=== PATIENT | male | born 1925 | race Caucasian/White ===

== ENCOUNTER 2016-10-22 04:37 | Inpatient (IN) ==
--- NOTE | 2016-10-22 05:33 | Emergency Department Note ---
Disposition Clinical Impression: Dislodged gastrostomy tube Disposition: Admitted As Inpatient Condition: Good Time of Disposition: 05:48 General Adult HPI - General Stated complaint: Pulled out PEG tube Source: patient Limitations: other Nursing Notes Reviewed: Yes Vital Signs Reviewed: Yes - History of Present Illness HPI Narrative: 89-year-old male with a history of esophageal stenosis presents to the emergency department for evaluation after pulling his PEG tube out. Patient is currently at an extended care facility where some point tonight he dislodged his PEG tube and removed it. PEG tube was placed on 10/14/[address] Harden for what sounds like esophageal strictures. On arrival the stoma is covered with a gauze and there is a small amount of blood oozing from the area. Patient denies any abdominal pain. He is currently sleeping in bed in no acute distress. Patient is unsure of how the PEG tube was removed and is not entirely clear when the PEG tube was actually placed. On exam, the abdomen is soft with a small incision noted in the left upper quadrant is covered by a clean dry dressing. No other focal findings noted on exam. We did discuss the case with Dr. Jeronimo who advised us not to attempt to place a Campbell catheter to maintain the stoma, but rather admit the patient to the surgical service and keep him nothing by mouth until a PEG tube can be placed. Baseline labs ordered. Pt Subjective Complaint: PEG tube removed Onset (ago): unknown Location: abdomen Radiation: non-radiation Pain Scale: 3 Improves with: nothing Worsens with: nothing Associated symptoms: Reports: denies other symptoms Treatments Prior to Arrival: none - Related Data Home Medications Medication Instructions Recorded Confirmed Cyclosporine [Restasis] 1 drop BOTH EYES HS 08/22/15 10/10/16 Darifenacin Hydrobromide [Enablex] 7.5 mg PO DAILY 08/22/15 10/10/16 [place]-3 Acid Ethyl Esters [Lovaza] 1 gm PO Q12H 08/22/15 10/10/16 Tamsulosin [Flomax] 0.4 mg PO DAILY 08/22/15 10/10/16 Benzonatate [Tessalon] 100 mg PO TID PRN 07/21/16 10/10/16 Ferrous Sulfate 325 mg PO DAILY 07/21/16 10/10/16 Montelukast [Singulair] 10 mg PO DAILY 07/21/16 10/10/16 Multivitamin [Multi-Day Vitamins] 1 tab PO DAILY 07/21/16 10/10/16 Nitroglycerin [Nitrostat] 0.4 mg SL Q5M PRN 07/21/16 10/10/16 Ascorbate Calcium [Vitamin C] 500 mg PO DAILY 08/18/16 10/10/16 Ca/D3/Mag#11/Zinc/Animal Caretaker/[place]/Bor 1 tab PO DAILY 08/18/16 10/10/16 [Caltrate 600+D Plus Tablet] Budesonide/Formoterol 80/4.5 2 puff IH BID 09/10/16 10/10/16 [Symbicort 80/4.5] Furosemide [Lasix] 40 mg PO BID 09/10/16 10/10/16 Selenium 300 mcg PO DAILY 09/10/16 10/10/16 Fluticasone/Vilanterol [Breo 1 each IH DAILY 09/19/16 10/10/16 Ellipta 100-25 Mcg INH] Isosorbide DInitrate [Isosorbide 30 mg PO DAILY 09/19/16 10/10/16 Dinitrate] Lactose-Reduced Food [Ensure Plus] 1 bottle PO 199909/19/16 10/10/16 Potassium Chloride 20 meq PO TID 09/19/16 10/10/16 Magnesium Oxide [Mag-Ox] 400 mg PO DAILY 10/10/16 10/10/16 RisperiDONE [Risperidone Odt] 0.5 mg PO HS 10/10/16 10/10/16 Saline Nasal [place] [[place] Nasal 1 - 2 spray NS Q4H PRN 10/10/16 10/10/16 [place]] Previous Rx's Medication Instructions Recorded Aspirin 81 mg PO DAILY #30 tab.chew 07/25/16 Omeprazole [PriLOSEC] 40 mg PO BID #60 07/25/16 Sucralfate [Carafate] 1 gm PO QIDAC #120 tablet 07/25/16 Diltiazem CD (24hr) [Cardizem CD] 240 mg PO DAILY #30 cap.er.24h 07/30/16 AcetaZOLAMIDE [Diamox] 250 mg PO DAILY #30 tablet 08/23/16 Docusate [Colace] 100 mg PO BID capsule 09/15/16 Levothyroxine [Synthroid] 50 mcg PO 0630 tablet 09/15/16 Metoprolol [Lopressor] 50 mg PO BID #60 tablet 09/22/16 Polyethylene Glycol 3350 [MiraLAX] 17 gm PO DAILY PRN #14 powd.pack 09/22/16 Sennosides/Docusate Sodium [Senna 2 each PO BID #60 tablet 09/22/16 Plus] GuaiFENesin ER [Mucinex] 600 mg PO BID PRN #20 tbbp.12hr 10/09/16 Ipratropium/Albuterol Neb [Duoneb] 3 ml IH [id number] PRN #10 inhsol 10/09/16 Diltiazem HCl [Cardizem] 60 mg GTUBE Q6HR #120 tablet 10/17/16 OxyCODONE Immed Rel [Roxicodone 5 5 mg PO Q6HR PRN #30 tablet MDD 4 10/17/16 MG] tabs Allergies Allergy/AdvReac Type Severity Reaction Status Date / Time Anesthetics - Laura Type- Allergy Rash Verified 10/10/16 07:55 Parabens [Anesthetics - Laura Type] morphine AdvReac Itching Verified 10/10/16 07:55 Constitutional: Denies: fever, chills Cardiovascular: Denies: chest pain, palpitations Respiratory: Denies: cough, dyspnea Gastrointestinal: Reports: abdominal pain. Denies: nausea, vomiting Genitourinary: Denies: urgency Musculoskeletal: Denies: back pain Integumentary: Denies: rash Neurological: Denies: headache Past Medical History - Past Medical History Medical history: Reports: arthritis, asthma, atrial fibrillation, cancer, cardiomyopathy, CHF, COPD, coronary artery disease, DVT, GERD, GI bleed, hyperlipidemia, hypertension, malignancy, myocardial infarction, osteoporosis, thyroid disease, venous stasis, other Surgical history: Reports: angioplasty/stent, cancer surgery, cholecystectomy, coronary bypass (CABG), pacemaker/AICD, thyroidectomy, other Psychiatric history: Reports: no psych history - Social History Smoking Status: Former smoker Smokeless Tobacco Status: No Alcohol use: Reports: none Drug use: Reports: none Physical Exam - General General appearance: alert, in no apparent distress - Head Head exam: atraumatic, normocephalic, normal inspection - Chest Chest inspection: Present: normal inspection, symmetric chest wall rise - Respiratory Respiratory exam: Present: normal lung sounds bilaterally - Cardiovascular Cardiovascular exam: Present: regular rate, normal rhythm, normal heart sounds - Abdominal Exam Abdominal exam: Present: soft, tenderness. Absent: distention, guarding, rebound, rigidity Abdominal tenderness: Present: LUQ, mild - Neurological Exam Neurological exam: Present: alert - Skin Skin exam: Present: warm, dry, intact, normal color Course Vital Signs Temperature 98.6 F 10/22/16 04:44 Pulse Rate 87 10/22/16 04:44 Respiratory Rate 18 10/22/16 04:44 Blood Pressure 119/54 10/22/16 04:44 O2 Sat by Pulse Oximetry 99 10/22/16 04:44 Temperature 98.6 F 10/22/16 04:44 Pulse Rate 87 10/22/16 04:44 Respiratory Rate 18 10/22/16 04:44 Blood Pressure 119/54 10/22/16 04:44 O2 Sat by Pulse Oximetry 99 10/22/16 04:44 Oxygen Delivery Oxygen Delivery Nasal Cannula Medical Decision Making - Medical Records Medical records reviewed: Yes I reviewed the patient's medical records. - Lab Data Lab results reviewed: Yes I reviewed the patient's lab results. - EKG Data EKG #1 EKG attestation: Yes I reviewed and interpreted this EKG. Rate: normal Rhythm: A.Fib Interpretation: no acute changes Attestation Statement - Attestation Attestation: I, Donny Forbes MD, personally performed a history and physical exam of the patient and discussed their management with the resident. I reviewed the resident's note and agree with the documented findings, medical decision making , and plan of care. 89-year-old male sent to the emergency department from a local prison after he pulled out his PEG tube. The PEG tube was just placed 1 week ago. Examination patient is a well-developed well-nourished elderly male in no acute distress. He is alert and cooperative. There is no cyanosis or diaphoresis. Breath sounds are equal bilaterally. Heart irregularly irregular. Abdomen soft with normal bowel sounds. Mild upper abdominal tenderness around the incision site of the PEG tube. Clot present in the incision site with no active bleeding noted. The surgeon aeronautical engineering teacher, Dr. Jeronimo, was consulted and will admit the patient.
[2016-10-22 06:52] LABS: Basophils % 0.2 %; Eosinophils # 0.3 K/mcL (0.0-0.6); Eosinophils % 2.8 %; Hematocrit 31.9 % (37.5-50.1); Hemoglobin 9.6 g/dL (12.9-16.9); Immature Granulocytes % 0.6 % (0-4); Lymphocytes # 0.7 K/mcL (0.6-4.6); Lymphocytes % 7.1 %; Mean Corpuscular HGB Conc 30.1 g/dL (31.6-35.5); Mean Corpuscular Hemoglobin 29.9 pg (28.0-33.3); Mean Corpuscular Volume 99.4 fL (83.0-100.0); Mean Platelet Volume 9.2 fL (9.4-12.4); Monocytes # 0.9 K/mcL (0.0-1.3); Monocytes % 9.8 %; Neutrophils # 7.5 K/mcL (1.6-8.9); Platelet Count 220 K/mcL (140-400); Red Blood Count 3.21 M/mcL (4.19-5.50); Red Cell Distribution Width 14.8 % (11.5-14.5); Segmented Neutrophils % 79.5 %
[2016-10-22 06:57] LABS: INR 1.1; Prothrombin Time 12.2 Seconds (9.4-12.1)
[2016-10-22 07:03] LABS: BUN/Creatinine Ratio 34 (6-26); Blood Urea Nitrogen 28 mg/dL (8-26); Calcium 10.2 mg/dL (8.6-10.8); Chloride 94 mEq/L (98-109); Glucose 130 mg/dL (70-99); Osmolality,Calculated 299 (280-300); Sodium 141 mEq/L (136-145); eGFR For African Americans > 60 (> 60); eGFR For Non-African Americans > 60 (> 60)
[2016-10-22 07:19] LABS: Carbon Dioxide 46 mEq/L (19-29)
[2016-10-22] MEDS ORDERED: *HR* Midazolam HCl 5 MG/5 ML VIAL IVP ONE (11:16)
[2016-10-22] MEDS ORDERED: *HR* FentaNYL (PF) 100 MCG/2 ML VIAL ONE (11:17)
[2016-10-22] MEDS ORDERED: Tetracaine/Benzocaine/Butamben 200MG/SPRAY (100SPY/BOT) MM ONE (11:29)
[2016-10-22] MEDS ORDERED: *HR* FentaNYL (PF) 100 MCG/2 ML VIAL IVP PRN (11:29)
[2016-10-22] MEDS ORDERED: *HR* Midazolam HCl 5 MG/5 ML VIAL IVP PRN (11:29)
[2016-10-22] MEDS ORDERED: Simethicone 40 MG/0.6 ML MLS IR ONE (11:29)
--- NOTE | 2016-10-22 11:29 | Pre-Sedation Evaluation ---
Pre-sedation evaluation - Pre-sedation checklist Date of procedure: 10/22/16 Procedure: PEG replacement Recent Vitals: Last Vital Signs Temp 97.4 F L 10/22/16 10:52 Pulse 90 10/22/16 10:52 Resp 18 10/22/16 10:52 BP 127/64 10/22/16 10:52 Pulse Ox 95 10/22/16 10:52 H&P (including ROS) documented in medical record: Yes Previous reaction to sedatives/anesthetics: Yes; explain in comment Dietary Status: NPO after Midnight Dentition: No loose teeth or bridges Possible difficult airway: No ASA Classification *see protocol: CLASS IV-Severe systemic disease/constant threat to pt's life Plan of Care: Pt appropriate candidate for procedure/moderate/conscious sedation , Risks/benefits of procedure/sedation discussed w/ patient/family
[2016-10-22] MEDS ORDERED: ceFAZolin 2,000 MG in D5% in Water 100 ML IVPB ONE (11:40)
[2016-10-22] MEDS: 0.9 % Sodium Chloride 1,000 ML IVC SCH (12:00)
--- NOTE | 2016-10-22 12:11 | Electrocardiograph Report ---
[facility] Test Date: 2016-10-22 Pat Name: Chay Torres Department: 105 Room: 3A43 Gender: M Library Services Dean: [facility] : [id number] Requested By: Cory Bartlett Order Number: [id number] Reading MD: Sukhdeep Danielle MD Measurements Intervals [place] Rate: 85 P: [place]: 0 QRS: 19 QRSD: 101 T: -8 QT: 378 QTc: 420 Interpretive Statements ATRIAL FIBRILLATION NONSPECIFIC T-WAVE ABNORMALITY Electronically Signed On 10-22-16 12:10:34 EST by Sukhdeep Danielle MD
--- NOTE | 2016-10-22 12:22 | General Surg History&Physical ---
<Michelle Mckeon - Last Filed: 10/22/16 12:30> Date of Encounter: 10/22/16 Time of Encounter: 12:17 Assessment and Plan (1) Dislodged gastrostomy tube Current Visit: Yes Status: Acute The assessment and plan as outlined above was discussed with the patient and/or family members who expressed understanding and agreement. All questions were answered. new PEG tube placement today History of Present Illness Chief complaint: PEG tube (re)placement HPI: Mr. Torres is a 89 year old male resident of an [facility] who pulled out his PEG tube - placed 10/14/2016 - last night. His daughter is in the room with him and states that he said he did not want the tube replaced when he was in the ER. He currently says he does want the tube replaced, but has AMS. His POA, his Sallie, was contacted and she gave said to replace the PEG tube. Surgical consent was signed and the patient will be going to the OR today for new PEG tube placement. Past Med Surg Social Fam HX - Past Medical History Medical history: arthritis, asthma, atrial fibrillation, cancer, cardiomyopathy , CHF, COPD, coronary artery disease, DVT, GERD, GI bleed, hyperlipidemia, hypertension, malignancy, myocardial infarction, osteoporosis, thyroid disease, venous stasis, other Psychiatric history: no psych history - Past Surgical History Surgical History: angioplasty/stent, cancer surgery, cholecystectomy, coronary bypass (CABG), pacemaker/AICD, thyroidectomy, other - Social History Smoking Status: Former smoker Smokeless Tobacco Status: No Alcohol use: none Drug use: none - Family History Father Adopted: No Family Member Ethnicity: Non- Living Status: Hx Family Cardiac Disorders: Yes (HTN) Hx Family Respiratory Disorders: No Hx Family Cancer: No Hx Family GI Disorders: No Hx Family Endocrine Disorder: No Hx Family Neuromuscular Disorders: No Hx Family Neurologic Disorders: No Hx Family HEENT Disorders: No Hx Family Autoimmune Disorders: No Medications and Allergies Cyclosporine [Restasis] 1 drop BOTH EYES HS 08/22/15 [History] Darifenacin Hydrobromide [Enablex] 7.5 mg PO DAILY 08/22/15 [History] [place]-3 Acid Ethyl Esters [Lovaza] 1 gm PO Q12H 08/22/15 [History] Tamsulosin [Flomax] 0.4 mg PO DAILY 08/22/15 [History] Benzonatate [Tessalon] 100 mg PO TID PRN 07/21/16 [History] Ferrous Sulfate 325 mg PO DAILY 07/21/16 [History] Montelukast [Singulair] 10 mg PO DAILY 07/21/16 [History] Multivitamin [Multi-Day Vitamins] 1 tab PO DAILY 07/21/16 [History] Nitroglycerin [Nitrostat] 0.4 mg SL Q5M PRN 07/21/16 [History] Aspirin 81 mg PO DAILY #30 tab.chew 07/25/16 [Rx] Omeprazole [PriLOSEC] 40 mg PO BID #60 07/25/16 [Rx] Sucralfate [Carafate] 1 gm PO QIDAC #120 tablet 07/25/16 [Rx] Ascorbate Calcium [Vitamin C] 500 mg PO DAILY 08/18/16 [History] Ca/D3/Mag#11/Zinc/Coupon And Bond Collection Clerk/[place]/Bor [Caltrate 600+D Plus Tablet] 1 tab PO DAILY 08/18 [History] AcetaZOLAMIDE [Diamox] 250 mg PO DAILY #30 tablet 08/23/16 [Rx] Budesonide/Formoterol 80/4.5 [Symbicort 80/4.5] 2 puff IH BID 09/10/16 [History ] Furosemide [Lasix] 40 mg PO BID 09/10/16 [History] Selenium 300 mcg PO DAILY 09/10/16 [History] Docusate [Colace] 100 mg PO BID capsule 09/15/16 [Rx] Levothyroxine [Synthroid] 50 mcg PO 0630 tablet 09/15/16 [Rx] Fluticasone/Vilanterol [Breo Ellipta 100-25 Mcg INH] 1 each IH DAILY 09/19/16 [ History] Isosorbide DInitrate [Isosorbide Dinitrate] 30 mg PO DAILY 09/19/16 [History] Lactose-Reduced Food [Ensure Plus] 1 bottle PO 199909/19/16 [History] Potassium Chloride 20 meq PO TID 09/19/16 [History] Metoprolol [Lopressor] 50 mg PO BID #60 tablet 09/22/16 [Rx] Polyethylene Glycol 3350 [MiraLAX] 17 gm PO DAILY PRN #14 powd.pack 09/22/16 [Rx ] Sennosides/Docusate Sodium [Senna Plus] 2 each PO BID #60 tablet 09/22/16 [Rx] GuaiFENesin ER [Mucinex] 600 mg PO BID PRN #20 tbbp.12hr 10/09/16 [Rx] Ipratropium/Albuterol Neb [Duoneb] 3 ml IH [id number] PRN #10 inhsol 10/09/16 [Rx] Magnesium Oxide [Mag-Ox] 400 mg PO DAILY 10/10/16 [History] RisperiDONE [Risperidone Odt] 0.5 mg PO HS 10/10/16 [History] Saline Nasal [place] [[place] Nasal [place]] 1 - 2 spray NS Q4H PRN 10/10/16 [History] Diltiazem HCl [Cardizem] 60 mg GTUBE Q6HR #120 tablet 10/17/16 [Rx] OxyCODONE Immed Rel [Roxicodone 5 MG] 5 mg PO Q6HR PRN #30 tablet MDD 4 tabs [Rx] Allergies Anesthetics - Laura Type- Parabens [Anesthetics - Laura Type] Allergy (Verified 10/10/16 07:55) Rash morphine Adverse Reaction (Verified 10/10/16 07:55) Itching Review of Systems ROS unobtainable: due to mental status All systems PM: A 10-system review of systems was performed and is negative for pertinent findings except as documented above in the HPI. General Surgery Exam Initial Vital Signs Temp Pulse Resp BP Pulse Ox 98.6 F 87 18 119/54 99 10/22/16 04:44 10/22/16 04:44 10/22/16 04:44 10/22/16 04:44 10/22/16 04:44 - General physical appearance well developed, well nourished, no distress - Eyes normal ocular movement - ENT normal mucosa, atraumatic, normocephalic - Neck trachea midline - Respiratory normal respiratory effort, clear to auscultation - Cardiovascular Cardiovascular exam: Present: RRR - Abdomen Abdomen general surgery: Present: bowel sounds present, soft, non tender, wound (PEG hole covered) - Neurologic Present: CN 2-12 grossly intact, confused, disoriented - Psychiatric Psychiatric general surgery: Present: other (possibly A&Ox1 - he is talking nonsensical) Results - Labs 10/22/16 06:45 10/22/16 06:45 Abnormal lab results RBC 3.21 M/mcL (4.19-5.50) L 10/22/16 06:45 Hgb 9.6 g/dL (12.9-16.9) L 10/22/16 06:45 Hct 31.9 % (37.5-50.1) L 10/22/16 06:45 MCHC 30.1 g/dL (31.6-35.5) L 10/22/16 06:45 RDW 14.8 % (11.5-14.5) H 10/22/16 06:45 MPV 9.2 fL (9.4-12.4) L 10/22/16 06:45 PT 12.2 Seconds (9.4-12.1) H 10/22/16 06:45 Potassium 5.0 mEq/L (3.5-4.5) H D 10/22/16 06:45 Chloride 94 mEq/L (98-109) L 10/22/16 06:45 Carbon Dioxide 46 mEq/L (19-29) H* 10/22/16 06:45 BUN 28 mg/dL (8-26) H D 10/22/16 06:45 BUN/Creatinine Ratio 34 (6-26) H 10/22/16 06:45 Glucose 130 mg/dL (70-99) H 10/22/16 06:45 POC Glucose 117 (58-89) H 10/22/16 10:54 Diabetes panel 10/22/16 Range/Units 06:45 Sodium 141 (136-145) mEq/L Potassium 5.0 H D (3.5-4.5) mEq/L Chloride 94 L (98-109) mEq/L Carbon Dioxide 46 H* (19-29) mEq/L BUN 28 H D (8-26) mg/dL Creatinine 0.82 (0.72-1.25) mg/dL Glucose 130 H (70-99) mg/dL Calcium 10.2 (8.6-10.8) mg/dL Calcium panel 10/22/16 Range/Units 06:45 Calcium 10.2 (8.6-10.8) mg/dL Pituitary panel 10/22/16 Range/Units 06:45 Sodium 141 (136-145) mEq/L Potassium 5.0 H D (3.5-4.5) mEq/L Chloride 94 L (98-109) mEq/L Carbon Dioxide 46 H* (19-29) mEq/L BUN 28 H D (8-26) mg/dL Creatinine 0.82 (0.72-1.25) mg/dL Glucose 130 H (70-99) mg/dL Calcium 10.2 (8.6-10.8) mg/dL Adrenal panel 10/22/16 Range/Units 06:45 Sodium 141 (136-145) mEq/L Potassium 5.0 H D (3.5-4.5) mEq/L Chloride 94 L (98-109) mEq/L Carbon Dioxide 46 H* (19-29) mEq/L BUN 28 H D (8-26) mg/dL Creatinine 0.82 (0.72-1.25) mg/dL Glucose 130 H (70-99) mg/dL Calcium 10.2 (8.6-10.8) mg/dL All other labs normal. <Perfecto Jeronimo T - Last Filed: 10/23/16 07:47> History of Present Illness HPI: Mr. Torres is a 89 year old male Review of Systems All systems PM: A 10-system review of systems was performed and is negative for pertinent findings except as documented above in the HPI. General Surgery Exam Initial Vital Signs Temp Pulse Resp BP Pulse Ox 98.6 F 87 18 119/54 99 10/22/16 04:44 10/22/16 04:44 10/22/16 04:44 10/22/16 04:44 10/22/16 04:44 Results - Labs 10/23/16 04:11 10/23/16 04:11 Abnormal lab results RBC 3.23 M/mcL (4.19-5.50) L 10/23/16 04:11 Hgb 9.6 g/dL (12.9-16.9) L 10/23/16 04:11 Hct 32.7 % (37.5-50.1) L 10/23/16 04:11 MCV 101.2 fL (83.0-100.0) H 10/23/16 04:11 MCHC 29.4 g/dL (31.6-35.5) L 10/23/16 04:11 RDW 15.0 % (11.5-14.5) H 10/23/16 04:11 Neutrophils # 9.0 K/mcL (1.6-8.9) H 10/23/16 04:11 PT 12.2 Seconds (9.4-12.1) H 10/22/16 06:45 Potassium 5.1 mEq/L (3.5-4.5) H 10/23/16 04:11 Chloride 96 mEq/L (98-109) L 10/23/16 04:11 Carbon Dioxide 45 mEq/L (19-29) H* 10/23/16 04:11 BUN 29 mg/dL (8-26) H 10/23/16 04:11 BUN/Creatinine Ratio 38 (6-26) H 10/23/16 04:11 Glucose 103 mg/dL (70-99) H 10/23/16 04:11 POC Glucose 116 (58-89) H 10/23/16 05:22 Calculated Osmolality 304 (280-300) H 10/23/16 04:11 Diabetes panel 10/23/16 Range/Units 04:11 Sodium 144 (136-145) mEq/L Potassium 5.1 H (3.5-4.5) mEq/L Chloride 96 L (98-109) mEq/L Carbon Dioxide 45 H* (19-29) mEq/L BUN 29 H (8-26) mg/dL Creatinine 0.76 (0.72-1.25) mg/dL Glucose 103 H (70-99) mg/dL Calcium 9.7 (8.6-10.8) mg/dL Calcium panel 10/23/16 Range/Units 04:11 Calcium 9.7 (8.6-10.8) mg/dL Pituitary panel 10/23/16 Range/Units 04:11 Sodium 144 (136-145) mEq/L Potassium 5.1 H (3.5-4.5) mEq/L Chloride 96 L (98-109) mEq/L Carbon Dioxide 45 H* (19-29) mEq/L BUN 29 H (8-26) mg/dL Creatinine 0.76 (0.72-1.25) mg/dL Glucose 103 H (70-99) mg/dL Calcium 9.7 (8.6-10.8) mg/dL Adrenal panel 10/23/16 Range/Units 04:11 Sodium 144 (136-145) mEq/L Potassium 5.1 H (3.5-4.5) mEq/L Chloride 96 L (98-109) mEq/L Carbon Dioxide 45 H* (19-29) mEq/L BUN 29 H (8-26) mg/dL Creatinine 0.76 (0.72-1.25) mg/dL Glucose 103 H (70-99) mg/dL Calcium 9.7 (8.6-10.8) mg/dL All other labs normal. - Attending Attestation I examined this patient and my medical decision-making was reviewed with the TRAFFIC WAREHOUSE SUPERVISOR/PA/Advanced Practice Nurse/Resident Physician. I agree with the documented findings, disposition and treatment plan as described except to the extent set forth below. Perfecto Jeronimo MD
[2016-10-22] MEDS ORDERED: *HR* HYDROmorphone (PF) 1 MG/ML SYRINGE IVP PRN (15:46)
[2016-10-22] MEDS ORDERED: *HR* OxyCODONE Oral Soln 5 MG/5 ML UD.LIQ GTUBE PRN (15:47)
[2016-10-22 17:25] LABS: Bilirubin,Urine Negative (Negative); Blood,Urine Negative (Negative); Clarity,Urine Clear (Clear); Color,Urine Yellow (Yellow); Glucose,Urine (UA) Normal (Normal); Ketones,Urine Negative (Negative); Leukocyte Esterase,Urine Negative (Negative); Nitrite,Urine Negative (Negative); Protein,Urine Negative (Neg-Trace); Specific Gravity,Urine 1.015 (1.010-1.025); Urobilinogen,Urine Normal (Normal)
[2016-10-22] MEDS: *HR* Heparin 5,000 UNIT/ML VIAL SQ SCH (18:28)
[2016-10-22] MEDS: *HR* Metoprolol 5 MG/5 ML VIAL IVP SCH ×2 (19:23→23:33)
[2016-10-23] MEDS: *HR* Metoprolol 5 MG/5 ML VIAL IVP SCH ×4 (05:03→23:30)
[2016-10-23] MEDS: *HR* Heparin 5,000 UNIT/ML VIAL SQ SCH ×2 (05:03→17:32)
[2016-10-23 05:40] LABS: Basophils % 0.2 %; Eosinophils # 0.1 K/mcL (0.0-0.6); Eosinophils % 0.6 %; Hematocrit 32.7 % (37.5-50.1); Hemoglobin 9.6 g/dL (12.9-16.9); Immature Granulocytes % 0.6 % (0-4); Lymphocytes # 0.7 K/mcL (0.6-4.6); Lymphocytes % 6.4 %; Mean Corpuscular HGB Conc 29.4 g/dL (31.6-35.5); Mean Corpuscular Hemoglobin 29.7 pg (28.0-33.3); Mean Corpuscular Volume 101.2 fL (83.0-100.0); Mean Platelet Volume 9.6 fL (9.4-12.4); Monocytes # 0.9 K/mcL (0.0-1.3); Monocytes % 8.3 %; Platelet Count 226 K/mcL (140-400); Red Blood Count 3.23 M/mcL (4.19-5.50); Segmented Neutrophils % 83.9 %
[2016-10-23 05:59] LABS: BUN/Creatinine Ratio 38 (6-26); Blood Urea Nitrogen 29 mg/dL (8-26); Calcium 9.7 mg/dL (8.6-10.8); Chloride 96 mEq/L (98-109); Glucose 103 mg/dL (70-99); Osmolality,Calculated 304 (280-300); Potassium 5.1 mEq/L (3.5-4.5); Sodium 144 mEq/L (136-145); eGFR For African Americans > 60 (> 60); eGFR For Non-African Americans > 60 (> 60)
[2016-10-23 06:03] LABS: Carbon Dioxide 45 mEq/L (19-29)
[2016-10-23] MEDS: 0.9 % Sodium Chloride 1,000 ML IVC SCH (08:08)
--- NOTE | 2016-10-23 13:02 | Discharge Summary ---
Date of Encounter: 10/23/16 Time of Encounter: 12:58 - Discharge Diagnosis (1) Dislodged gastrostomy tube Priority: Primary Status: Acute - Discharge Medications Home Medications: Cyclosporine [Restasis] 1 drop BOTH EYES HS 08/22/15 [History] Darifenacin Hydrobromide [Enablex] 7.5 mg PO DAILY 08/22/15 [History] [place]-3 Acid Ethyl Esters [Lovaza] 1 gm PO Q12H 08/22/15 [History] Tamsulosin [Flomax] 0.4 mg PO DAILY 08/22/15 [History] Benzonatate [Tessalon] 100 mg PO TID PRN 07/21/16 [History] Ferrous Sulfate 325 mg PO DAILY 07/21/16 [History] Montelukast [Singulair] 10 mg PO DAILY 07/21/16 [History] Multivitamin [Multi-Day Vitamins] 1 tab PO DAILY 07/21/16 [History] Nitroglycerin [Nitrostat] 0.4 mg SL Q5M PRN 07/21/16 [History] Aspirin 81 mg PO DAILY #30 tab.chew 07/25/16 [Rx] Omeprazole [PriLOSEC] 40 mg PO BID #60 07/25/16 [Rx] Sucralfate [Carafate] 1 gm PO QIDAC #120 tablet 07/25/16 [Rx] Ascorbate Calcium [Vitamin C] 500 mg PO DAILY 08/18/16 [History] Ca/D3/Mag#11/Zinc/Allergy Nurse/[place]/Bor [Caltrate 600+D Plus Tablet] 1 tab PO DAILY 08/18 [History] AcetaZOLAMIDE [Diamox] 250 mg PO DAILY #30 tablet 08/23/16 [Rx] Budesonide/Formoterol 80/4.5 [Symbicort 80/4.5] 2 puff IH BID 09/10/16 [History ] Furosemide [Lasix] 40 mg PO BID 09/10/16 [History] Selenium 300 mcg PO DAILY 09/10/16 [History] Docusate [Colace] 100 mg PO BID capsule 09/15/16 [Rx] Levothyroxine [Synthroid] 50 mcg PO 0630 tablet 09/15/16 [Rx] Fluticasone/Vilanterol [Breo Ellipta 100-25 Mcg INH] 1 each IH DAILY 09/19/16 [ History] Isosorbide DInitrate [Isosorbide Dinitrate] 30 mg PO DAILY 09/19/16 [History] Lactose-Reduced Food [Ensure Plus] 1 bottle PO 2000 09/19/16 [History] Potassium Chloride 20 meq PO TID 09/19/16 [History] Metoprolol [Lopressor] 50 mg PO BID #60 tablet 09/22/16 [Rx] Polyethylene Glycol 3350 [MiraLAX] 17 gm PO DAILY PRN #14 powd.pack 09/22/16 [Rx ] Sennosides/Docusate Sodium [Senna Plus] 2 each PO BID #60 tablet 09/22/16 [Rx] GuaiFENesin ER [Mucinex] 600 mg PO BID PRN #20 tbbp.12hr 10/09/16 [Rx] Ipratropium/Albuterol Neb [Duoneb] 3 ml IH [id number] PRN #10 inhsol 10/09/16 [Rx] Magnesium Oxide [Mag-Ox] 400 mg PO DAILY 10/10/16 [History] RisperiDONE [Risperidone Odt] 0.5 mg PO HS 10/10/16 [History] Saline Nasal [place] [[place] Nasal [place]] 1 - 2 spray NS Q4H PRN 10/10/16 [History] Diltiazem HCl [Cardizem] 60 mg GTUBE Q6HR #120 tablet 10/17/16 [Rx] OxyCODONE Immed Rel [Roxicodone 5 MG] 5 mg PO Q6HR PRN #30 tablet MDD 4 tabs [Rx] Allergies/Adverse Reactions: Allergies Anesthetics - Laura Type- Parabens [Anesthetics - Laura Type] Allergy (Verified 10/10/16 07:55) Rash morphine Adverse Reaction (Verified 10/10/16 07:55) Itching General Surgery Exam Initial Vital Signs Temp Pulse Resp BP Pulse Ox 98.6 F 87 18 119/54 99 10/22/16 04:44 10/22/16 04:44 10/22/16 04:44 10/22/16 04:44 10/22/16 04:44 - General physical appearance well developed, well nourished, no distress - Eyes normal ocular movement - ENT normal mucosa, atraumatic, normocephalic - Neck trachea midline - Respiratory normal respiratory effort, clear to auscultation - Cardiovascular Cardiovascular exam: Present: irregular rhythm (a fib) - Abdomen Abdomen general surgery: Present: bowel sounds present, soft, non tender - Integumentary Integumentary general surgery: Present: warm and dry - Neurologic Present: CN 2-12 grossly intact - Psychiatric Psychiatric general surgery: Present: speech is normal, other (answering questions appropriately today) Date of admission: 10/22/16 05:51 Primary care physician: Rasheed Suarez Consults: 10/22/16 08:26 Consult to Nutrition [CONS] Routine Comment: Consulting Provider: NUTRITION Reason for Dietary Consult: MST Score Other:: PEG tube disloged Discharging clinician: Michelle Mckeon Anticipated date of discharge: 10/23/16 - Patient Status Disposition: Transfer LTC Condition: Good Overall status at discharge: patient is back to baseline - Discharge Instructions Forms: ED Satisfaction Letter, Work/School Release Additional Instructions: Use abdominal binder to keep patient from pulling PEG tube out. - Hospital Course Hospital course: Mr. Torres is a 89 year old male admitted to the hospital due to removal of his PEG tube. He went to surgery and another PEG tube was placed. Abdominal binder was applied. - Time Spent with Patient Total time spent providing and/or coordinating discharge services: Labs on day of discharge: Labs from last 24 hours 10/23/16 10/23/16 10/23/16 12:50 05:22 04:11 WBC RBC Hgb Hct MCV MCH MCHC RDW Plt Count MPV Immature Gran % Seg Neutrophils % Lymphocytes % Monocytes % Eosinophils % Basophils % Neutrophils # Lymphocytes # Monocytes # Eosinophils # Basophils # Sodium 144 Potassium 5.1 H Chloride 96 L Carbon Dioxide 45 H* BUN 29 H Creatinine 0.76 Est GFR ( Amer) > 60 Est GFR (Non-Af Amer) > 60 BUN/Creatinine Ratio 38 H Glucose 103 H POC Glucose 135 H 116 H Calculated Osmolality 304 H Calcium 9.7 Urine Color Urine Clarity Urine pH Ur Specific [place] Urine Protein Urine Glucose (UA) Urine Ketones Urine Blood Urine Nitrite Urine Bilirubin Urine Urobilinogen Ur Leukocyte Esterase 10/23/16 10/22/16 10/22/16 04:11 21:43 17:10 WBC 10.8 RBC 3.23 L Hgb 9.6 L Hct 32.7 L MCV 101.2 H MCH 29.7 MCHC 29.4 L RDW 15.0 H Plt Count 226 MPV 9.6 Immature Gran % 0.6 Seg Neutrophils % 83.9 Lymphocytes % 6.4 Monocytes % 8.3 Eosinophils % 0.6 Basophils % 0.2 Neutrophils # 9.0 H Lymphocytes # 0.7 Monocytes # 0.9 Eosinophils # 0.1 Basophils # 0.0 Sodium Potassium Chloride Carbon Dioxide BUN Creatinine Est GFR ( Amer) Est GFR (Non-Af Amer) BUN/Creatinine Ratio Glucose POC Glucose 110 H Calculated Osmolality Calcium Urine Color Yellow Urine Clarity Clear Urine pH 8.0 Ur Specific [place] 1.015 Urine Protein Negative Urine Glucose (UA) Normal Urine Ketones Negative Urine Blood Negative Urine Nitrite Negative Urine Bilirubin Negative Urine Urobilinogen Normal Ur Leukocyte Esterase Negative
--- NOTE | 2016-10-23 13:14 | Physician Discharge Referral ---
- Diagnosis (1) Dislodged gastrostomy tube Priority: Primary Status: Acute Prognosis: Good Aware of Diagnosis: Patient (at times), Family Aware of Prognosis: Patient (at times), Family - Transfer Medications Home Medications: Cyclosporine [Restasis] 1 drop BOTH EYES HS 08/22/15 [History] Darifenacin Hydrobromide [Enablex] 7.5 mg PO DAILY 08/22/15 [History] [place]-3 Acid Ethyl Esters [Lovaza] 1 gm PO Q12H 08/22/15 [History] Tamsulosin [Flomax] 0.4 mg PO DAILY 08/22/15 [History] Benzonatate [Tessalon] 100 mg PO TID PRN 07/21/16 [History] Ferrous Sulfate 325 mg PO DAILY 07/21/16 [History] Montelukast [Singulair] 10 mg PO DAILY 07/21/16 [History] Multivitamin [Multi-Day Vitamins] 1 tab PO DAILY 07/21/16 [History] Nitroglycerin [Nitrostat] 0.4 mg SL Q5M PRN 07/21/16 [History] Aspirin 81 mg PO DAILY #30 tab.chew 07/25/16 [Rx] Omeprazole [PriLOSEC] 40 mg PO BID #60 07/25/16 [Rx] Sucralfate [Carafate] 1 gm PO QIDAC #120 tablet 07/25/16 [Rx] Ascorbate Calcium [Vitamin C] 500 mg PO DAILY 08/18/16 [History] Ca/D3/Mag#11/Zinc/Coil Finisher/[place]/Bor [Caltrate 600+D Plus Tablet] 1 tab PO DAILY 08/18 [History] AcetaZOLAMIDE [Diamox] 250 mg PO DAILY #30 tablet 08/23/16 [Rx] Budesonide/Formoterol 80/4.5 [Symbicort 80/4.5] 2 puff IH BID 09/10/16 [History ] Furosemide [Lasix] 40 mg PO BID 09/10/16 [History] Selenium 300 mcg PO DAILY 09/10/16 [History] Docusate [Colace] 100 mg PO BID capsule 09/15/16 [Rx] Levothyroxine [Synthroid] 50 mcg PO 0630 tablet 09/15/16 [Rx] Fluticasone/Vilanterol [Breo Ellipta 100-25 Mcg INH] 1 each IH DAILY 09/19/16 [ History] Isosorbide DInitrate [Isosorbide Dinitrate] 30 mg PO DAILY 09/19/16 [History] Lactose-Reduced Food [Ensure Plus] 1 bottle PO 2000 09/19/16 [History] Potassium Chloride 20 meq PO TID 09/19/16 [History] Metoprolol [Lopressor] 50 mg PO BID #60 tablet 09/22/16 [Rx] Polyethylene Glycol 3350 [MiraLAX] 17 gm PO DAILY PRN #14 powd.pack 09/22/16 [Rx ] Sennosides/Docusate Sodium [Senna Plus] 2 each PO BID #60 tablet 09/22/16 [Rx] GuaiFENesin ER [Mucinex] 600 mg PO BID PRN #20 tbbp.12hr 10/09/16 [Rx] Ipratropium/Albuterol Neb [Duoneb] 3 ml IH [id number] PRN #10 inhsol 10/09/16 [Rx] Magnesium Oxide [Mag-Ox] 400 mg PO DAILY 10/10/16 [History] RisperiDONE [Risperidone Odt] 0.5 mg PO HS 10/10/16 [History] Saline Nasal [place] [[place] Nasal [place]] 1 - 2 spray NS Q4H PRN 10/10/16 [History] Diltiazem HCl [Cardizem] 60 mg GTUBE Q6HR #120 tablet 10/17/16 [Rx] OxyCODONE Immed Rel [Roxicodone 5 MG] 5 mg PO Q6HR PRN #30 tablet MDD 4 tabs [Rx] Allergies/Adverse Reactions: Allergies Anesthetics - Laura Type- Parabens [Anesthetics - Laura Type] Allergy (Verified 10/10/16 07:55) Rash morphine Adverse Reaction (Verified 10/10/16 07:55) Itching - Respiratory Orders Smoking Cessation: Smoking cessation has been advised. For more information, call the [place] Tobacco Quit Line at 9-619-LXMPNOW. CERTIFICATION: I certify that the transfer of the above named patient to an Extended Care Facility is necessary for the continuing treatment of the diagnosis listed. The above information is true and accurate reflection of patient's current condition. Confidential - Redisclosure prohibited without a patient's written consent.
[2016-10-23 13:52] LABS: Basophils % 0.2 %
[2016-10-23 13:53] LABS: Eosinophils # 0.1 K/mcL (0.0-0.6); Eosinophils % 1.1 %; Hematocrit 33.7 % (37.5-50.1); Immature Granulocytes % 0.4 % (0-4); Lymphocytes # 0.6 K/mcL (0.6-4.6); Lymphocytes % 5.6 %; Mean Corpuscular HGB Conc 29.7 g/dL (31.6-35.5); Mean Corpuscular Volume 101.2 fL (83.0-100.0); Mean Platelet Volume 9.4 fL (9.4-12.4); Monocytes # 0.8 K/mcL (0.0-1.3); Neutrophils # 9.3 K/mcL (1.6-8.9); Platelet Count 227 K/mcL (140-400); Red Blood Count 3.33 M/mcL (4.19-5.50); Red Cell Distribution Width 14.9 % (11.5-14.5); Segmented Neutrophils % 85.7 %
[2016-10-23 14:06] LABS: INR 1.2; Prothrombin Time 13.1 Seconds (9.4-12.1)
[2016-10-23 14:07] LABS: Alanine Aminotransferase 6 Units/L (0-55); Albumin 2.6 g/dL (3.5-5.0); Albumin/Globulin Ratio 0.6 (1.1-2.2); Alkaline Phosphatase 54 Units/L (38-126); Aspartate Amino Transferase 23 Units/L (5-34); BUN/Creatinine Ratio 42 (6-26); Bilirubin,Total 0.5 mg/dL (0.2-1.2); Blood Urea Nitrogen 33 mg/dL (8-26); Calcium 9.6 mg/dL (8.6-10.8); Chloride 94 mEq/L (98-109); Globulin 4.2 g/dL (2.4-3.5); Glucose 149 mg/dL (70-99); Osmolality,Calculated 302 (280-300); Potassium 4.8 mEq/L (3.5-4.5); Sodium 141 mEq/L (136-145); Total Protein 6.8 g/dL (6.0-8.3); eGFR For African Americans > 60 (> 60); eGFR For Non-African Americans > 60 (> 60)
[2016-10-23 14:08] LABS: Activated Partial Thrombo Time 49.6 Seconds (26.0-36.0)
[2016-10-23 14:09] LABS: Carbon Dioxide 41 mEq/L (19-29)
[2016-10-23 14:16] LABS: Basophilic Stippling 1+ (Not Present); Hypochromasia Present (Not Present); Platelet Estimate Normal (Normal)
[2016-10-23] MEDS ORDERED: Furosemide 40 MG/4 ML VIAL IVP ONE (14:17)
[2016-10-23 14:18] LABS: Poikilocytosis 1+ (Not Present)
[2016-10-23] MEDS ORDERED: Ipratropium/Albuterol Neb 3 ML IH PRN (14:32)
[2016-10-23] MEDS ORDERED: dilTIAZem HCl 60 MG TABLET PO SCH ×2 (15:22→18:00)
--- NOTE | 2016-10-23 16:01 | Event Note ---
<Michelle Mckeon - Last Filed: 10/23/16 15:50> Date of Encounter: 10/23/16 Time of Encounter: 15:50 Original plan for patient discharge today however, on patient evaluation by nurse, he was hypoxic and had coughed up blood. On my entrance to the room he was satting at 78% (he had removed his oxygen), oxygen saturation was improved to 88% with Ventimask at 10 L. Consult a hospitalist was placed at this time. Later, the patient removed his G-tube and it was noted that he was in A. fib RVR. He has a previous history of A. fib RVR on prior admissions; he was in sinus rhythm by my examinations during this admission until this morning when he was in A. fib rate controlled on Lopressor. <Perfecto Jeronimo - Last Filed: 10/24/16 19:19> I examined this patient and my medical decision-making was reviewed with the BOWLING BALL MOLDER/PA/Advanced Practice Nurse/Resident Physician. I agree with the documented findings, disposition and treatment plan as described except to the extent set forth below. Perfecto Jeronimo MD
--- NOTE | 2016-10-23 16:13 | Internal Medicine Consult Note ---
Date of Encounter: 10/23/16 Time of Encounter: 14:20 Internal Medicine - CN: HPI - Data of Consult Requesting Physician: Perfecto Jeronimo MD - Consult Narrative History of present illness: Mr. Torres is a 89 year old male with extensive medical history including CHF, COPD on home oxygen, Afib (not on anticoagulation due to GI bleed), and severe dysphagia requiring PEG tube placement who is admitted for PEG tube replacement. Patient underwent the PEG tube replacement yesterday and was noted to be hypoxic with his nasal cannula removed earlier today. Medicine was initially consulted for further management of hypoxia, however later on patient was noted to have removed his G-tube and had not received his metoprolol/ cardizem PO and was found to be in Afib with RVR with a rate of 150, and medicine was asked to further manage his Afib. Patient seen and examined at bedside. REsting in bed, saturating well on venti mask. It is reported that patient's home medications including Lasix was not restarted. Pt had a CXR which is consistent with pulmonary edema and questionable PNA. Past Med Surg Social Fam HX - Past Medical History Medical history: arthritis, asthma, atrial fibrillation, cancer, cardiomyopathy , CHF, COPD, coronary artery disease, DVT, GERD, GI bleed, hyperlipidemia, hypertension, malignancy, myocardial infarction, osteoporosis, thyroid disease, venous stasis, other Psychiatric history: no psych history - Past Surgical History Surgical History: angioplasty/stent, cancer surgery, cholecystectomy, coronary bypass (CABG), pacemaker/AICD, thyroidectomy, other - Social History Smoking Status: Former smoker Smokeless Tobacco Status: No Alcohol use: none Drug use: none - Family History Father Adopted: No Family Member Ethnicity: Non- Living Status: Hx Family Cardiac Disorders: Yes (HTN) Hx Family Respiratory Disorders: No Hx Family Cancer: No Hx Family GI Disorders: No Hx Family Endocrine Disorder: No Hx Family Neuromuscular Disorders: No Hx Family Neurologic Disorders: No Hx Family HEENT Disorders: No Hx Family Autoimmune Disorders: No Internal Medicine - CN: Meds Cyclosporine [Restasis] 1 drop BOTH EYES HS 08/22/15 [History] Darifenacin Hydrobromide [Enablex] 7.5 mg PO DAILY 08/22/15 [History] [place]-3 Acid Ethyl Esters [Lovaza] 1 gm PO Q12H 08/22/15 [History] Tamsulosin [Flomax] 0.4 mg PO DAILY 08/22/15 [History] Benzonatate [Tessalon] 100 mg PO TID PRN 07/21/16 [History] Ferrous Sulfate 325 mg PO DAILY 07/21/16 [History] Montelukast [Singulair] 10 mg PO DAILY 07/21/16 [History] Multivitamin [Multi-Day Vitamins] 1 tab PO DAILY 07/21/16 [History] Nitroglycerin [Nitrostat] 0.4 mg SL Q5M PRN 07/21/16 [History] Aspirin 81 mg PO DAILY #30 tab.chew 07/25/16 [Rx] Omeprazole [PriLOSEC] 40 mg PO BID #60 07/25/16 [Rx] Sucralfate [Carafate] 1 gm PO QIDAC #120 tablet 07/25/16 [Rx] Ascorbate Calcium [Vitamin C] 500 mg PO DAILY 08/18/16 [History] Ca/D3/Mag#11/Zinc/Separator Operator [employer]ats/[place]/Bor [Caltrate 600+D Plus Tablet] 1 tab PO DAILY 08/18 [History] AcetaZOLAMIDE [Diamox] 250 mg PO DAILY #30 tablet 08/23/16 [Rx] Budesonide/Formoterol 80/4.5 [Symbicort 80/4.5] 2 puff IH BID 09/10/16 [History ] Furosemide [Lasix] 40 mg PO BID 09/10/16 [History] Selenium 300 mcg PO DAILY 09/10/16 [History] Docusate [Colace] 100 mg PO BID capsule 09/15/16 [Rx] Levothyroxine [Synthroid] 50 mcg PO 0630 tablet 09/15/16 [Rx] Fluticasone/Vilanterol [Breo Ellipta 100-25 Mcg INH] 1 each IH DAILY 09/19/16 [ History] Isosorbide DInitrate [Isosorbide Dinitrate] 30 mg PO DAILY 09/19/16 [History] Lactose-Reduced Food [Ensure Plus] 1 bottle PO 199909/19/16 [History] Potassium Chloride 20 meq PO TID 09/19/16 [History] Metoprolol [Lopressor] 50 mg PO BID #60 tablet 09/22/16 [Rx] Polyethylene Glycol 3350 [MiraLAX] 17 gm PO DAILY PRN #14 powd.pack 09/22/16 [Rx ] Sennosides/Docusate Sodium [Senna Plus] 2 each PO BID #60 tablet 09/22/16 [Rx] GuaiFENesin ER [Mucinex] 600 mg PO BID PRN #20 tbbp.12hr 10/09/16 [Rx] Ipratropium/Albuterol Neb [Duoneb] 3 ml IH [id number] PRN #10 inhsol 10/09/16 [Rx] Magnesium Oxide [Mag-Ox] 400 mg PO DAILY 10/10/16 [History] RisperiDONE [Risperidone Odt] 0.5 mg PO HS 10/10/16 [History] Saline Nasal [place] [[place] Nasal [place]] 1 - 2 spray NS Q4H PRN 10/10/16 [History] Diltiazem HCl [Cardizem] 60 mg GTUBE Q6HR #120 tablet 10/17/16 [Rx] OxyCODONE Immed Rel [Roxicodone 5 MG] 5 mg PO Q6HR PRN #30 tablet MDD 4 tabs [Rx] Allergies Anesthetics - Laura Type- Parabens [Anesthetics - Laura Type] Allergy (Verified 10/10/16 07:55) Rash morphine Adverse Reaction (Verified 10/10/16 07:55) Itching Internal Medicine - CN: Exam - Constitutional Vitals: Temp Pulse Resp BP Pulse Ox 97.7 F 113 20 123/65 96 10/23/16 14:24 10/23/16 14:24 10/23/16 14:24 10/23/16 14:24 10/23/16 15:20 General appearance IM: Present: A&O X 2, no acute distress (frail appearing elderly male) - Head Head exam: Present: atraumatic, normocephalic - Respiratory Respiratory exam: Absent: wheezes (bibasilar crackles ) - GI/Abdominal GI/Abdominal exam IM: Present: normal bowel sounds, soft. Absent: tenderness ( PEG tube in place during my examination) - Extremities Exam Extremities exam IM: Present: warm, radial pulses palpable and symetrical. Absent: calf tenderness, pedal edema, tenderness - Neurological Exam Neurological exam: Present: alert Internal Medicine - CN: Reslt - Labs CBC & Chem 7: 10/23/16 13:36 10/23/16 13:36 Labs: Short CBC 10/23/16 10/23/16 Range/Units 04:11 13:36 WBC 10.8 10.9 (4.3-11.1) K/mcL Hgb 9.6 L 10.0 L (12.9-16.9) g/dL Hct 32.7 L 33.7 L (37.5-50.1) % Plt Count 226 227 (140-400) K/mcL Neutrophils # 9.0 H 9.3 H (1.6-8.9) K/mcL BMP 10/23/16 10/23/16 04:11 13:36 Sodium 144 141 Potassium 5.1 H 4.8 H Chloride 96 L 94 L Carbon Dioxide 45 H* 41 H* BUN 29 H 33 H Creatinine 0.76 0.78 Glucose 103 H 149 H Calcium 9.7 9.6 Liver Function 10/23/16 Range/Units 13:36 Total Bilirubin 0.5 (0.2-1.2) mg/dL AST 23 (5-34) Units/L ALT 6 (0-55) Units/L Alkaline Phosphatase 54 (38-126) Units/L Albumin 2.6 L (3.5-5.0) g/dL Urine 10/22/16 Range/Units 17:10 Urine Color Yellow (Yellow) Urine Clarity Clear (Clear) Urine pH 8.0 (5.0-8.0) pH Units Ur Specific [place] 1.015 (1.010-1.025) Urine Protein Negative (Neg-Trace) mg/dL Urine Glucose (UA) Normal (Normal) mg/dL - ABG Interpretation ABG results: PT/INR, D-dimer PT 13.1 Seconds (9.4-12.1) H 10/23/16 13:36 D-Dimer 2229 ng/mLFEU (0-500) H 10/23/16 13:36 - Impressions Impressions Chest X-Ray 10/23/16 13:20 IMPRESSION: Cardiomegaly with vascular congestion and prominent interstitial changes suspicious for pulmonary edema. Bibasilar airspace disease and a small right pleural effusion are also identified, which could be related to pulmonary edema or possibly pneumonia. D/ / Kyaw Rose MD / Kyaw Rose MD Interpreting Provider: Kyaw Rose MD - Assessment and Plan (1) Hypoxia Current Visit: Yes Status: Acute Assessment and plan: CXR consistent with pulmonary edema One time dose of Lasix 40mg IV given continue Lasix 20mg IV q12h until PEG tube replaced Goal O2 sat: 89-92% Repeat CXR in am, patient recently finished abx course for aspiration PNA, no clinical evidence of PNA present at this time, monitor off abx at this time. continue O2 supplementation as needed given patient's mental status, he may benefit for 1:1 observation for safety Thank You for allowing me to participate in the care of this patient, will continue to follow. (2) Atrial fibrillation Current Visit: Yes Status: Acute Assessment and plan: -start Cardizem gtt at this time for rate control -Goal HR <100 -continue cardizem gtt until PEG tube is replaced and PO medications can be given -Pt's rate is adequately controlled with metoprolol and cardizem PO -not on anticoagulation due to history of GI bleeds Qualifiers: Atrial fibrillation type: chronic Qualified Code(s): I48.2 - Chronic atrial fibrillation (3) Metabolic alkalosis Current Visit: Yes Status: Acute Assessment and plan: contraction alkalosis secondary to diuretic therapy will continue Lasix due to pulm edema continue to monitor (4) Hyperkalemia Current Visit: Yes Status: Acute Assessment and plan: obtain EKG to r/o EKG changes further management as per primary team (5) Dysphagia Current Visit: Yes Status: Acute Assessment and plan: will need PEG tube replacement consider another discussion with palliative care team and family in regards to pursuing hospice/comfort care Qualifiers: Dysphagia type: unspecified Qualified Code(s): R13.10 - Dysphagia, unspecified (6) CHF (congestive heart failure) Current Visit: No Status: Chronic Assessment and plan: continue home medications restarted Lasix Qualifiers: Congestive heart failure type: systolic Congestive heart failure chronicity : chronic Qualified Code(s): I50.22 - Chronic systolic (congestive) heart failure (7) COPD (chronic obstructive pulmonary disease) Current Visit: No Status: Chronic Assessment and plan: not in acute exacerbation continue bronchodilator support Qualifiers: COPD type: unspecified COPD Qualified Code(s): J44.9 - Chronic obstructive pulmonary disease, unspecified Consult Discharge Plan - Plan Additional Instructions: Use abdominal binder to keep patient from pulling PEG tube out. Referrals: Rasheed Suarez [Primary Care Provider] -
[2016-10-23] MEDS ORDERED: Sucralfate 1 GM TABLET PO SCH (16:30)
[2016-10-23] MEDS ORDERED: 0.9 % Sodium Chloride 500 ML ONE (17:43)
[2016-10-23] MEDS: Piperacillin/Tazobactam 3.375 GM in D5% in Water (Mini-Bag+) 100 ML IVPB SCH ×2 (18:12→23:30)
[2016-10-23] MEDS: Budesonide/Formoterol 80/4.5 MDI IH SCH (20:35)
[2016-10-23] MEDS ORDERED: risperiDONE 0.25 MG TABLET PO SCH (21:00)
[2016-10-23] MEDS ORDERED: Furosemide 40 MG TABLET PO SCH (21:00)
[2016-10-23] MEDS ORDERED: (Cyclosporine [Restasis] 1 DROP) OP SCH (21:00)
[2016-10-24] MEDS: *HR* Metoprolol 5 MG/5 ML VIAL IVP SCH ×3 (05:25→23:28)
[2016-10-24] MEDS: *HR* Heparin 5,000 UNIT/ML VIAL SQ SCH (05:26)
[2016-10-24] MEDS: Piperacillin/Tazobactam 3.375 GM in D5% in Water (Mini-Bag+) 100 ML IVPB SCH (08:09)
[2016-10-24] MEDS: Budesonide/Formoterol 80/4.5 MDI IH SCH ×2 (08:14→21:43)
[2016-10-24] MEDS ORDERED: acetaZOLAMIDE 250 MG TABLET PO SCH (09:00)
[2016-10-24] MEDS ORDERED: DARIFENACIN HYDROBROMIDE 7.5 MG PO SCH (09:00)
[2016-10-24] MEDS ORDERED: Ascorbic Acid 500 MG TABLET PO SCH (09:00)
[2016-10-24] MEDS ORDERED: (Fluticasone/Vilanterol [Breo Ellipta 100-25 Mcg Inh] IH SCH (09:00)
[2016-10-24] MEDS ORDERED: Aspirin 81 MG TAB.CHEW PO SCH (09:00)
[2016-10-24] MEDS ORDERED: Magnesium Oxide 400 MG TABLET PO SCH (09:00)
--- NOTE | 2016-10-24 14:11 | General Surgery Progress Note ---
<Megan De Luna - Last Filed: 10/24/16 14:24> Date of Encounter: 10/24/16 Time of Encounter: 14:08 - Assessment and Plan (1) Dislodged gastrostomy tube Current Visit: Yes Status: Acute Patient pulled peg tube out yesterday Treated with conservative measures including: NG tube to LIWS, NPO, IV antibiotics Palliative care consulted to discuss goals of care Plan for family meeting at [address] Jeronimo and palliative care (2) Dysphagia Current Visit: Yes Status: Acute Patient pulled peg tube out yesterday for the second time in 1 week Treated with conservative measures including: NG tube to LIWS, NPO, IV antibiotics Palliative care consulted to discuss goals of care Plan for family meeting at [address] 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 Current Visit: No Status: Acute Management per medicine service Qualifiers: Congestive heart failure type: combined Qualified Code(s): I50.43 - Acute on chronic combined systolic (congestive) and diastolic (congestive) heart failure (4) Altered mental status Current Visit: No Status: Acute Soft wrist restraints to prevent disruption of treatment Qualifiers: Altered mental status type: delirium Qualified Code(s): R41.0 - Disorientation, unspecified (5) Atrial fibrillation with RVR Current Visit: No Status: Acute Cardizem gtt Management per medicine service (6) Goals of care, counseling/discussion Current Visit: No Status: Acute Palliative care consulted Family meeting at [address] Jeronimo and palliative care (7) Physical deconditioning Current Visit: No Status: Chronic Subjective Patient reports: afebrile, other (Patient confused with soft restraints in place. Pulled peg tube out yesterday. Pulled NG tube out today. On cardizem gtt at 10mg for Atrial Fibrillation with RVR) Objective Vital Signs - Last 8 Hours Temp Pulse Resp BP Pulse Ox 10/24/16 13:06 97.4 F L 102 18 116/60 94 L 10/24/16 10:58 97.3 F L 112 20 115/65 92 L 10/24/16 10:55 97.3 F L 96 20 153/83 95 10/24/16 09:07 97.5 F L 112 18 138/81 92 L 10/24/16 08:14 18 97 10/24/16 07:13 97.8 F 84 18 132/72 92 L 10/24/16 07:00 97.6 F 87 20 142/65 99 10/24/16 06:22 97.1 F L 95 22 126/66 96 Intake and Output 10/23/16 10/24/16 10/24/16 23:59 07:59 15:59 Intake Total 100 / 100 225 / 225 100 / 100 Output Total 1450 / 1450 900 / 900 950 / 950 Balance -1350 / -1350 -675 / -675 -850 / -850 Intake: IV Fluids 100 / 100 225 / 225 100 / 100 Cardizem 125 MG In 125 / 125 Dextrose 5% 100 ML @ 5 MG /HR 5 mls/hr IVC .Q24H [facility] Rx#:[id number] Zosyn 3.375 GM In 100 / 100 100 / 100 100 / 100 Dextrose 5% (Minibag+) 100 ML 100 ML @ 25 mls/hr IVPB Q8HR [facility] Rx#: [id number] Oral 0 / 0 0 / 0 Output: Gastric Tube Lavage 0 / 0 0 / 0 0 / 0 Amount Right Nare 0 / 0 0 / 0 0 / 0 Catheter 300 / 300 200 / 200 Gastric Drainage 1150 / 1150 700 / 700 950 / 950 Other: Meal NPO Weight 81.5 kg Blood Glucose* 119 118 132 Patient Weight 10/24/16 23:59 Weight 81.5 kg - General physical appearance chronically ill, other - Eyes PERRL - ENT dry mucosa, atraumatic, normocephalic - Neck Neck exam: trachea midline - Respiratory rales: bilateral - Cardiovascular Cardiovascular exam: Present: irregular rhythm (Atrial Fibrillation with RVR on cardizem gtt at 10mg) - Abdomen Abdomen: Present: bowel sounds present, soft, non tender, wound (abdomen with old peg tube site with old,dark drainage noted. No erythema or induration noted. ) - Genitourinary other (patel catheter to SD with clear, yellow urine) - Neurologic CN 2-12 grossly intact - Musculoskeletal other (severe deconditioning noted. Generalized edema noted.) - Psychiatric oriented to person, other (Patient confused and in soft wrist restraints to prevent disruption in treatment.) - Labs 10/23/16 13:36 10/23/16 13:36 Diabetes panel 10/23/16 Range/Units 13:36 Sodium 141 (136-145) mEq/L Potassium 4.8 H (3.5-4.5) mEq/L Chloride 94 L (98-109) mEq/L Carbon Dioxide 41 H* (19-29) mEq/L BUN 33 H (8-26) mg/dL Creatinine 0.78 (0.72-1.25) mg/dL Glucose 149 H (70-99) mg/dL Calcium 9.6 (8.6-10.8) mg/dL AST 23 (5-34) Units/L ALT 6 (0-55) Units/L Alkaline Phosphatase 54 (38-126) Units/L Albumin 2.6 L (3.5-5.0) g/dL Calcium panel 10/23/16 Range/Units 13:36 Calcium 9.6 (8.6-10.8) mg/dL Albumin 2.6 L (3.5-5.0) g/dL Pituitary panel 10/23/16 Range/Units 13:36 Sodium 141 (136-145) mEq/L Potassium 4.8 H (3.5-4.5) mEq/L Chloride 94 L (98-109) mEq/L Carbon Dioxide 41 H* (19-29) mEq/L BUN 33 H (8-26) mg/dL Creatinine 0.78 (0.72-1.25) mg/dL Glucose 149 H (70-99) mg/dL Calcium 9.6 (8.6-10.8) mg/dL Adrenal panel 10/23/16 Range/Units 13:36 Sodium 141 (136-145) mEq/L Potassium 4.8 H (3.5-4.5) mEq/L Chloride 94 L (98-109) mEq/L Carbon Dioxide 41 H* (19-29) mEq/L BUN 33 H (8-26) mg/dL Creatinine 0.78 (0.72-1.25) mg/dL Glucose 149 H (70-99) mg/dL Calcium 9.6 (8.6-10.8) mg/dL Total Bilirubin 0.5 (0.2-1.2) mg/dL AST 23 (5-34) Units/L ALT 6 (0-55) Units/L Alkaline Phosphatase 54 (38-126) Units/L Albumin 2.6 L (3.5-5.0) g/dL - Imaging Chest x-ray: report reviewed Abdominal x-ray: report reviewed Additional Studies: Chest/Abdomen X-ray 10/24/16 06:00 IMPRESSION: No significant interval change in the appearance of the chest compared with 1 day earlier. A right pleural effusion and bibasilar airspace disease persists as well as pulmonary edema. No evidence pneumoperitoneum. Small bowel caliber not assessed due to lack of small bowel gas. Contrast is present throughout a normal caliber colon, related to a prior exam with oral contrast. Colonic diverticulosis. D/ / Jerilyn Conde MD / Jerilyn Conde MD Interpreting Provider: Jerilyn Conde MD Consult Discharge Plan - Plan Additional Instructions: Use abdominal binder to keep patient from pulling PEG tube out. Referrals: Rasheed Suarez [Primary Care Provider] - - Attending Attestation I examined this patient and my medical decision-making was reviewed with the TECHNICIAN BIOLOGICAL HEALTH/PA/Advanced Practice Nurse/Resident Physician. I agree with the documented findings, disposition and treatment plan as described except to the extent set forth below. <Perfecto Jeronimo - Last Filed: 10/24/16 19:19> Objective Vital Signs - Last 8 Hours Temp Pulse Resp BP Pulse Ox 10/24/16 17:27 97.5 F L 108 18 103/56 96 10/24/16 15:20 97.6 F 105 18 137/67 92 L 10/24/16 14:54 97.4 F L 111 20 130/67 99 10/24/16 13:06 97.4 F L 102 18 116/60 94 L Intake and Output 10/24/16 10/24/16 10/24/16 07:59 15:59 23:59 Intake Total 225 / 225 350 / 350 225 / 225 Output Total 900 / 900 950 / 950 Balance -675 / -675 -600 / -600 225 / 225 Intake: IV Fluids 225 / 225 350 / 350 225 / 225 Cardizem 125 MG In 125 / 125 125 / 125 Dextrose 5% 100 ML @ 5 MG /HR 5 mls/hr IVC .Q24H [facility] Rx#:[id number] Doxycycline 100 MG In 0.9 100 / 100 % Sodium Chloride (Mini- Bag +) 100 ML @ 100 mls/ hr IVPB Q12HR [facility] Rx#: [id number] Zosyn 3.375 GM In 100 / 100 100 / 100 Dextrose 5% (Minibag+) 100 ML 100 ML @ 25 mls/hr IVPB Q8HR [facility] Rx#: [id number] Oral 0 / 0 Output: Gastric Tube Lavage 0 / 0 0 / 0 Amount Right Nare 0 / 0 0 / 0 Catheter 200 / 200 Gastric Drainage 700 / 700 950 / 950 Other: Meal NPO NPO Weight 81.5 kg Blood Glucose* 118 132 135 Patient Weight 10/24/16 23:59 Weight 81.5 kg - Labs 10/23/16 13:36 10/23/16 13:36 Calcium panel 10/24/16 Range/Units 16:55 Phosphorus 2.0 L (2.3-4.7) mg/dL - Attending Attestation Perfecto Jeronimo MD
--- NOTE | 2016-10-24 14:31 | Palliative - Consult Note ---
Date of Encounter: 10/24/16 Time of Encounter: 16:50 - Assessment and Plan (1) Agitation Current Visit: Yes Status: Acute Assessment and plan: Currently has Haldol every 6 hours PRN. Will change to IV route to avoid further needlesticks. Has not required as of yet. He remains restrained to avoid further trauma and pulling out of tubes. (2) Abdominal pain Current Visit: Yes Status: Acute Assessment and plan: Currently has low dose Hydromorphone if needed for pain. Has not utilized since 10/22 Monitor. Qualifiers: Abdominal location: unspecified location Qualified Code(s): R10.9 - Unspecified abdominal pain (3) Counseling regarding advanced care planning and goals of care Current Visit: Yes Status: Acute Assessment and plan: Meeting with Dr. Jeronimo, Megan De Luna, Myself, and pt 2 daughters, Danelle ( speakerphone) and Adore with their spouses. Dr. Jeronimo updated on clinical status and options regarding his care at this point involving trauma from PEG. Contrast study to be completed tomorrow to evaluate for leak - if so, family will have to decide to pursue surgery or not. If no leak - oral feeding can resume, although family was notified that he may not take in enough to meet his needs. Code status briefly discussed. Daughter Danelle very hesitant to make any decisions and wants family to discuss further. Palliative care will continue to follow. If he transitions to comfort care, will have to work with [facility] re: care transition there. Currently he is under a skilled level of care, and transitioning to hospice would involve the family having to private pay. They are aware of this. Spoke with Mariam at [facility] who will discuss with their staff and we are to call Thursday to further discuss. (4) Dislodged gastrostomy tube Current Visit: Yes Status: Acute (5) Atrial fibrillation Current Visit: Yes Status: Acute Qualifiers: Atrial fibrillation type: chronic Qualified Code(s): I48.2 - Chronic atrial fibrillation (6) Dysphagia Current Visit: Yes Status: Acute Qualifiers: Dysphagia type: unspecified Qualified Code(s): R13.10 - Dysphagia, unspecified Palliative-CN HPI - Data of Consult Patient: known to practice within the last 3 years Consult date: 10/24/16 Requesting Physician: Perfecto Jeronimo MD Primary Care Provider: Rasheed Suarez - Consult Narrative History of present illness: Mr. Torres is a 89 year old male known to palliative team from visit in September. Patient has had multiple scopes and has had esophageal dilation. However, he has had little po intake, and PEG was discussed when he was here in September. Patient was alert and oriented at that time, and wanted to proceed with PEG. He has medical history of atrial fibrillation, CHF - last known EF from earlier this month 55%, COPD, CAD, [place], HTN, GERD/esophageal stricture dilated in September. PEG was eventually placed and he was sent to [facility]. Since that time, he has pulled the PEG out x2 and has trauma with current NG draining bright red blood. He has pulled out NG today as well. Patient with neurological deficit and is in care facility in [facility]. She is primary POA, with daughters, Adore and Danelle as second and third alternates. Palliative was consulted by surgery, as they do not feel it is an appropriate measure to reinsert the PEG - and pt currently with significant bleeding at this time. CC: Perfecto Jeronimo MD Past Med Surg Social Fam HX - Past Medical History Medical history: arthritis, asthma, atrial fibrillation, cancer, cardiomyopathy , CHF, COPD, coronary artery disease, DVT, GERD, GI bleed, hyperlipidemia, hypertension, malignancy, myocardial infarction, osteoporosis, thyroid disease, venous stasis, other Psychiatric history: no psych history - Past Surgical History Surgical History: angioplasty/stent, cancer surgery, cholecystectomy, coronary bypass (CABG), pacemaker/AICD, thyroidectomy, other - Social History Smoking Status: Former smoker Smokeless Tobacco Status: No Alcohol use: none Drug use: none - Family History Father Adopted: No Family Member Ethnicity: Non- Living Status: Hx Family Cardiac Disorders: Yes (HTN) Hx Family Respiratory Disorders: No Hx Family Cancer: No Hx Family GI Disorders: No Hx Family Endocrine Disorder: No Hx Family Neuromuscular Disorders: No Hx Family Neurologic Disorders: No Hx Family HEENT Disorders: No Hx Family Autoimmune Disorders: No Medications and Allergies Cyclosporine [Restasis] 1 drop BOTH EYES HS 08/22/15 [History] Darifenacin Hydrobromide [Enablex] 7.5 mg PO DAILY 08/22/15 [History] Reedy-3 Acid Ethyl Esters [Lovaza] 1 gm PO Q12H 08/22/15 [History] Tamsulosin [Flomax] 0.4 mg PO DAILY 08/22/15 [History] Benzonatate [Tessalon] 100 mg PO TID PRN 07/21/16 [History] Ferrous Sulfate 325 mg PO DAILY 07/21/16 [History] Montelukast [Singulair] 10 mg PO DAILY 07/21/16 [History] Multivitamin [Multi-Day Vitamins] 1 tab PO DAILY 07/21/16 [History] Nitroglycerin [Nitrostat] 0.4 mg SL Q5M PRN 07/21/16 [History] Aspirin 81 mg PO DAILY #30 tab.chew 07/25/16 [Rx] Omeprazole [PriLOSEC] 40 mg PO BID #60 07/25/16 [Rx] Sucralfate [Carafate] 1 gm PO QIDAC #120 tablet 07/25/16 [Rx] Ascorbate Calcium [Vitamin C] 500 mg PO DAILY 08/18/16 [History] Ca/D3/Mag#11/Zinc/Workshop Manager/[place]/Bor [Caltrate 600+D Plus Tablet] 1 tab PO DAILY 08/18 [History] AcetaZOLAMIDE [Diamox] 250 mg PO DAILY #30 tablet 08/23/16 [Rx] Budesonide/Formoterol 80/4.5 [Symbicort 80/4.5] 2 puff IH BID 09/10/16 [History ] Furosemide [Lasix] 40 mg PO BID 09/10/16 [History] Selenium 300 mcg PO DAILY 09/10/16 [History] Docusate [Colace] 100 mg PO BID capsule 09/15/16 [Rx] Levothyroxine [Synthroid] 50 mcg PO 0630 tablet 09/15/16 [Rx] Fluticasone/Vilanterol [Breo Ellipta 100-25 Mcg INH] 1 each IH DAILY 09/19/16 [ History] Isosorbide DInitrate [Isosorbide Dinitrate] 30 mg PO DAILY 09/19/16 [History] Lactose-Reduced Food [Ensure Plus] 1 bottle PO 199909/19/16 [History] Potassium Chloride 20 meq PO TID 09/19/16 [History] Metoprolol [Lopressor] 50 mg PO BID #60 tablet 09/22/16 [Rx] Polyethylene Glycol 3350 [MiraLAX] 17 gm PO DAILY PRN #14 powd.pack 09/22/16 [Rx ] Sennosides/Docusate Sodium [Senna Plus] 2 each PO BID #60 tablet 09/22/16 [Rx] GuaiFENesin ER [Mucinex] 600 mg PO BID PRN #20 tbbp.12hr 10/09/16 [Rx] Ipratropium/Albuterol Neb [Duoneb] 3 ml IH [id number] PRN #10 inhsol 10/09/16 [Rx] Magnesium Oxide [Mag-Ox] 400 mg PO DAILY 10/10/16 [History] RisperiDONE [Risperidone Odt] 0.5 mg PO HS 10/10/16 [History] Saline Nasal Vil[place] [[place] Nasal Vilas] 1 - 2 spray NS Q4H PRN 10/10/16 [History] Diltiazem HCl [Cardizem] 60 mg GTUBE Q6HR #120 tablet 10/17/16 [Rx] OxyCODONE Immed Rel [Roxicodone 5 MG] 5 mg PO Q6HR PRN #30 tablet MDD 4 tabs [Rx] Allergies Anesthetics - Laura Type- Parabens [Anesthetics - Laura Type] Allergy (Verified 10/10/16 07:55) Rash morphine Adverse Reaction (Verified 10/10/16 07:55) Itching ROS unobtainable: due to mental status Palliative Care-Exam - Constitutional Vitals: Temp Pulse Resp BP Pulse Ox 97.4 F L 102 18 116/60 94 L 10/24/16 13:06 10/24/16 13:06 10/24/16 13:06 10/24/16 13:06 10/24/16 13:06 General appearance: Present: no acute distress - Head Head Exam: Present: normal inspection, normocephalic - Eye Eye exam: Present: normal appearance, PERRL - Expanded Respiratory Exam Location: rales: Left, Right, Lower - Cardiovascular Cardiovascular exam: Present: irregular rhythm, tachycardia - GI/Abdominal Exam GI/Abdominal exam: Present: soft additional comments: NG with bright red bloody drainage. Dressing to previous PEG site D/I. - Catheter Type: Urethral ([place]) Additional comments: Clear yellow urine noted - Extremities Exam Additional comments: 2+ generalized edema to all extremities - Neurological Exam Neurological exam: Present: alert Additional comments: Oriented to name and place only. - Skin Skin exam: Present: dry, pallor, warm Additional comments: Bruising to bilateral arms noted Internal Medicine - CN: Reslt - Labs CBC & Chem 7: 10/23/16 13:36 10/23/16 13:36 - ABG Interpretation ABG results: PT/INR, D-dimer PT 13.1 Seconds (9.4-12.1) H 10/23/16 13:36 D-Dimer 2229 ng/mLFEU (0-500) H 10/23/16 13:36 - Impressions Impressions Chest/Abdomen X-ray 10/24/16 06:00 IMPRESSION: No significant interval change in the appearance of the chest compared with 1 day earlier. A right pleural effusion and bibasilar airspace disease persists as well as pulmonary edema. No evidence pneumoperitoneum. Small bowel caliber not assessed due to lack of small bowel gas. Contrast is present throughout a normal caliber colon, related to a prior exam with oral contrast. Colonic diverticulosis. D/ / Jerilyn Conde MD / Jerilyn Conde MD Interpreting Provider: Jerilyn Conde MD Consult Discharge Plan - Plan Additional Instructions: Use abdominal binder to keep patient from pulling PEG tube out. Referrals: Rasheed Suarez [Primary Care Provider] - Palliative Quality Palliative Quality: Screen for Code Status: Yes, Screen for Goals of Care: Yes, Screen for Pain: Yes, If Pain Regimen Started, Initiate Bowel Regimen: NA, Screen for Nausea/Vomitting: Yes
[2016-10-24] MEDS: 0.9 % Sodium Chloride 1,000 ML IVC SCH (15:05)
[2016-10-24] MEDS ORDERED: Haloperidol Lactate 5 MG/ML VIAL IM PRN (16:06)
--- NOTE | 2016-10-24 16:14 | Internal Med Progress Note ---
Date of Encounter: 10/24/16 Time of Encounter: 10:00 - Assessment and plan (1) Dysphagia Current Visit: Yes Status: Acute Assessment and plan: pt had a Peg tube in place that was disloged twice since pt has advvance dementia most likely he will pulled NG and peg tuve again family meeting schedule today to discuss level of care , start PPI since he has bloody drainge from NG Qualifiers: Dysphagia type: unspecified Qualified Code(s): R13.10 - Dysphagia, unspecified (2) Atrial fibrillation Current Visit: Yes Status: Acute Assessment and plan: on cardizem drip and BB , heck echo Qualifiers: Atrial fibrillation type: chronic Qualified Code(s): I48.2 - Chronic atrial fibrillation (3) Dementia Current Visit: Yes Status: Chronic Assessment and plan: start exelon patches and haldol for agitation since pt can not take oral meds for now Qualifiers: Dementia type: Alzheimer's disease Alzheimer's disease onset: unspecified onset Dementia behavioral disturbance: with behavioral disturbance Qualified Code(s): G30.8 - Other Alzheimer's disease; F02.81 - Dementia in other diseases classified elsewhere with behavioral disturbance (4) Pneumonia Current Visit: Yes Status: Acute Assessment and plan: on natibioitd incentive pulmonary toilette Qualifiers: Aspiration pneumonia type: due to gastric secretions Lung location: unspecified part of lung Qualified Code(s): J69.0 - Pneumonitis due to inhalation of food and vomit - Time Spent With Patient 25 - 35 minutes - Subjective Interval history: Pt agitated confused , pulled NG tube , twice - Constitutional Vitals: Temp Pulse Resp BP Pulse Ox 97.6 F 105 18 137/67 92 L 10/24/16 15:20 10/24/16 15:20 10/24/16 15:20 10/24/16 15:20 10/24/16 15:20 General appearance: Present: A&O X 1, no acute distress (frail appearing elderly male). Absent: A&O X 2 - ENT Additional comments: NG in place with with bright red blood drainage - Respiratory Respiratory exam: Present: decreased breath sounds - Cardiovascular Additional comments: irregular irregular - GI/Abdominal GI/Abdominal exam: Present: normal bowel sounds, no peritoneal signs - Extremities Exam Extremities exam: Present: warm, radial pulses palpable and symetrical Internal Medicine: Result - Labs CBC & Chem 7: 10/23/16 13:36 10/23/16 13:36 - ABG Interpretation ABG results: PT/INR, D-dimer PT 13.1 Seconds (9.4-12.1) H 10/23/16 13:36 D-Dimer 2229 ng/mLFEU (0-500) H 10/23/16 13:36 - Impressions Impressions Chest/Abdomen X-ray 10/24/16 06:00 IMPRESSION: No significant interval change in the appearance of the chest compared with 1 day earlier. A right pleural effusion and bibasilar airspace disease persists as well as pulmonary edema. No evidence pneumoperitoneum. Small bowel caliber not assessed due to lack of small bowel gas. Contrast is present throughout a normal caliber colon, related to a prior exam with oral contrast. Colonic diverticulosis. D/ / Jerilyn Conde MD / Jerilyn Conde MD Interpreting Provider: Jerilyn Conde MD Consult Discharge Plan - Plan Additional Instructions: Use abdominal binder to keep patient from pulling PEG tube out. Referrals: Rasheed Suarez [Primary Care Provider] -
[2016-10-24] MEDS: Doxycycline 100 MG in 0.9 % Sodium Chloride Mini Bag 100 ML IVPB SCH (16:58)
[2016-10-24] MEDS: Pantoprazole 40 MG VIAL IVP SCH (16:58)
[2016-10-24] MEDS ORDERED: Haloperidol Lactate 5 MG/ML VIAL IVP PRN (17:12)
[2016-10-24 17:30] LABS: Magnesium 1.9 mg/dL (1.6-2.6)
[2016-10-25] MEDS: Doxycycline 100 MG in 0.9 % Sodium Chloride Mini Bag 100 ML IVPB SCH ×2 (05:32→16:53)
[2016-10-25] MEDS: Pantoprazole 40 MG VIAL IVP SCH ×2 (05:32→16:53)
[2016-10-25] MEDS: Rivastigmine Patch 4.6 MG PATCH.TD24 TD SCH (08:19)
[2016-10-25] MEDS: *HR* Metoprolol 5 MG/5 ML VIAL IVP SCH ×2 (08:21→16:26)
[2016-10-25 08:22] LABS: Alanine Aminotransferase 6 Units/L (0-55); Albumin/Globulin Ratio 0.6 (1.1-2.2); Alkaline Phosphatase 41 Units/L (38-126); Aspartate Amino Transferase 21 Units/L (5-34); BUN/Creatinine Ratio 68 (6-26); Bilirubin,Total 0.4 mg/dL (0.2-1.2); Blood Urea Nitrogen 47 mg/dL (8-26); Calcium 8.6 mg/dL (8.6-10.8); Chloride 98 mEq/L (98-109); Globulin 3.4 g/dL (2.4-3.5); Glucose 113 mg/dL (70-99); Osmolality,Calculated 331 (280-300); Potassium 3.8 mEq/L (3.5-4.5); Sodium 154 mEq/L (136-145); Total Protein 5.4 g/dL (6.0-8.3); eGFR For African Americans > 60 (> 60); eGFR For Non-African Americans > 60 (> 60)
[2016-10-25 08:49] LABS: Carbon Dioxide 46 mEq/L (19-29)
--- NOTE | 2016-10-25 09:06 | Palliative Progress Note ---
Date of Encounter: 10/25/16 Time of Encounter: 08:25 - Assessment and plan (1) Agitation Current Visit: Yes Status: Acute Assessment and plan: Patient is doing well this morning, has not used any Haldol. Per nursing staff patient has been calm during the night. To do fine with a sitter at this point. She will discuss with surgery. (2) Dislodged gastrostomy tube Current Visit: Yes Status: Acute Assessment and plan: Since been removed a couple of times, at this point no plans or in place to replace it. There is a plan to look and see if his stomach is healing over to an extent that he can eat or if surgery is going to be necessary. Surgery will discuss this with the family. (3) Dysphagia Current Visit: Yes Status: Acute Assessment and plan: If the whole has sealed patient will be allowed to eat and drink. However the patient was not taking in enough nourishment prior to the tube placement and this may continue to be a problem. Qualifiers: Dysphagia type: unspecified Qualified Code(s): R13.10 - Dysphagia, unspecified (4) Counseling regarding advanced care planning and goals of care Current Visit: Yes Status: Acute Assessment and plan: Britany is not present at this time. For no CODE STATUS discussion has taken place today. Awaiting the oral contrast study to see if her procedures will be necessary. We will await the results of the study and discussion with surgery. (5) Dementia Current Visit: Yes Status: Chronic Assessment and plan: Continue current meds continue to follow Qualifiers: Dementia type: Alzheimer's disease Alzheimer's disease onset: unspecified onset Dementia behavioral disturbance: with behavioral disturbance Qualified Code(s): G30.8 - Other Alzheimer's disease; F02.81 - Dementia in other diseases classified elsewhere with behavioral disturbance - Time Spent With Patient Total time spent is greater than 50% in coordination of care (as documented) at patient's floor/unit and/or counseling patient: - Subjective Interval history: Patient is calm this morning tube is still in place patient has been restrained during the night, however according to the nurses was during the night. Use of medication has been minimal. And this morning is for a study stomach to see if the tract from the PEG tube is still patent or not. Decide on further care. - Constitutional Vitals: Abnormal lab results RBC 3.33 M/mcL (4.19-5.50) L 10/23/16 13:36 Hgb 10.0 g/dL (12.9-16.9) L 10/23/16 13:36 Hct 33.7 % (37.5-50.1) L 10/23/16 13:36 MCV 101.2 fL (83.0-100.0) H 10/23/16 13:36 MCHC 29.7 g/dL (31.6-35.5) L 10/23/16 13:36 RDW 14.9 % (11.5-14.5) H 10/23/16 13:36 Neutrophils # 9.3 K/mcL (1.6-8.9) H 10/23/16 13:36 Hypochromasia Present (Not Present) A 10/23/16 13:36 Poikilocytosis 1+ (Not Present) A 10/23/16 13:36 Basophilic Stippling 1+ (Not Present) A 10/23/16 13:36 PT 13.1 Seconds (9.4-12.1) H 10/23/16 13:36 APTT 49.6 Seconds (26.0-36.0) H 10/23/16 13:36 D-Dimer 2229 ng/mLFEU (0-500) H 10/23/16 13:36 Sodium 154 mEq/L (136-145) H D 10/25/16 07:58 Carbon Dioxide 46 mEq/L (19-29) H* 10/25/16 07:58 BUN 47 mg/dL (8-26) H D 10/25/16 07:58 Creatinine 0.69 mg/dL (0.72-1.25) L 10/25/16 07:58 BUN/Creatinine Ratio 68 (6-26) H 10/25/16 07:58 Glucose 113 mg/dL (70-99) H 10/25/16 07:58 POC Glucose 114 (58-89) H 10/25/16 05:22 Calculated Osmolality 331 (280-300) H 10/25/16 07:58 Phosphorus 2.0 mg/dL (2.3-4.7) L 10/24/16 16:55 Serum Total Protein 5.4 g/dL (6.0-8.3) L D 10/25/16 07:58 Albumin 2.0 g/dL (3.5-5.0) L D 10/25/16 07:58 Albumin/Globulin Ratio 0.6 (1.1-2.2) L 10/25/16 07:58 General appearance: Present: no acute distress - Head Head exam: Present: atraumatic, normal inspection - Eye Eye exam: Present: normal appearance - ENT ENT exam: Present: mucous membranes moist - Respiratory Respiratory exam: Present: decreased breath sounds - Cardiovascular Cardiovascular exam: Present: irregular rhythm - GI/Abdominal GI/Abdominal exam: Present: normal bowel sounds, soft. Absent: tenderness - Extremities Exam Extremities exam: Present: normal inspection. Absent: pedal edema, tenderness - Neurological Exam Neurological exam: Present: altered, oriented X3 (Oriented to person and place) - Psychiatric Psychiatric exam: Absent: agitated, anxious (No agitation or anxiety at this time.) - Skin Skin exam: Present: dry, warm Palliative Quality Palliative Quality: Screen for Code Status: Yes, Screen for Goals of Care: Yes, Screen for Pain: Yes, If Pain Regimen Started, Initiate Bowel Regimen: NA, Screen for Nausea/Vomitting: Yes - Labs CBC & Chem 7: 10/23/16 13:36 10/25/16 07:58 Labs: Laboratory Results - last 24 hr 10/24/16 10/24/16 10/24/16 11:48 16:55 17:24 Sodium Potassium Chloride Carbon Dioxide BUN Creatinine Est GFR ( Amer) Est GFR (Non-Af Amer) BUN/Creatinine Ratio Glucose POC Glucose 132 H 135 H Calculated Osmolality Calcium Phosphorus 2.0 L Magnesium 1.9 Total Bilirubin AST ALT Alkaline Phosphatase Serum Total Protein Albumin Globulin Albumin/Globulin Ratio 10/24/16 10/25/16 10/25/16 23:21 05:22 07:58 Sodium 154 H D Potassium 3.8 D Chloride 98 Carbon Dioxide 46 H* BUN 47 H D Creatinine 0.69 L Est GFR ( Amer) > 60 Est GFR (Non-Af Amer) > 60 BUN/Creatinine Ratio 68 H Glucose 113 H POC Glucose 106 H 114 H Calculated Osmolality 331 H Calcium 8.6 Phosphorus Magnesium Total Bilirubin 0.4 AST 21 ALT 6 Alkaline Phosphatase 41 Serum Total Protein 5.4 L D Albumin 2.0 L D Globulin 3.4 Albumin/Globulin Ratio 0.6 L - ABG Interpretation ABG results: PT/INR, D-dimer PT 13.1 Seconds (9.4-12.1) H 10/23/16 13:36 D-Dimer 2229 ng/mLFEU (0-500) H 10/23/16 13:36 Consult Discharge Plan - Plan Additional Instructions: Use abdominal binder to keep patient from pulling PEG tube out. Referrals: Rasheed Suarez [Primary Care Provider] -
[2016-10-25] MEDS: Budesonide/Formoterol 80/4.5 MDI IH SCH ×2 (10:16→20:38)
[2016-10-25] MEDS: 0.9 % Sodium Chloride 1,000 ML IVC SCH (11:41)
--- NOTE | 2016-10-25 12:57 | General Surgery Progress Note ---
<Michelle Mckeon - Last Filed: 10/25/16 12:52> Date of Encounter: 10/25/16 Time of Encounter: 12:52 - Assessment and Plan (1) Dislodged gastrostomy tube Current Visit: Yes Status: Acute Patient has removed peg tube twice within one week Upper GI series shows no leak of contrast out of stomach Start nectar thickened liquids (3) Dysphagia Current Visit: Yes Status: Acute start nectar thickened liquids has previously not been able to take in adequate calories by mouth nutrition will need to be discussed at a family meeting Qualifiers: Dysphagia type: unspecified Qualified Code(s): R13.10 - Dysphagia, unspecified (4) Acute on chronic congestive heart failure Current Visit: No Status: Acute management per medicine service Qualifiers: Congestive heart failure type: combined Qualified Code(s): I50.43 - Acute on chronic combined systolic (congestive) and diastolic (congestive) heart failure (5) Altered mental status Current Visit: No Status: Acute patient calm today and overnight NG tube removed (peg tube no longer in place); trial off restraints - patient is still receiving cardizem gtt Qualifiers: Altered mental status type: delirium Qualified Code(s): R41.0 - Disorientation, unspecified (6) Atrial fibrillation with RVR Current Visit: No Status: Acute Cardizem gtt Management per medicine service (7) Goals of care, counseling/discussion Current Visit: No Status: Acute Palliative care on board (8) Physical deconditioning Current Visit: No Status: Chronic Subjective Patient reports: no new complaints, afebrile, other (patient lucid this morning and asking for nourishment) Objective Vital Signs - Last 8 Hours Temp Pulse Resp BP Pulse Ox 10/25/16 11:16 97.8 F 104 20 120/47 93 L 10/25/16 10:16 16 91 L 10/25/16 08:39 96.6 F L 97 18 117/56 92 L 10/25/16 08:00 93 L 10/25/16 06:37 97.2 F L 98 17 117/63 100 Intake and Output 10/24/16 10/25/16 10/25/16 23:59 07:59 15:59 Intake Total 645 / 645 225 / 225 580 / 580 Output Total 1200 / 1200 725 / 725 0 / 0 Balance -555 / -555 -500 / -500 580 / 580 Intake: IV Fluids 645 / 645 225 / 225 580 / 580 0.9 % Sodium Chloride 1, 420 / 420 580 / 580 000 ML @ 50 mls/hr IVC . Q20H [facility] Rx#:[id number] Cardizem 125 MG In 125 / 125 125 / 125 Dextrose 5% 100 ML @ 5 MG /HR 5 mls/hr IVC .Q24H [facility] Rx#:[id number] Doxycycline 100 MG In 0.9 100 / 100 100 / 100 % Sodium Chloride (Mini- Bag +) 100 ML @ 100 mls/ hr IVPB Q12HR [facility] Rx#: [id number] Oral 0 / 0 0 / 0 Output: Gastric Tube Lavage 0 / 0 0 / 0 Amount Right Nare 0 / 0 0 / 0 Catheter 650 / 650 500 / 500 0 / 0 Gastric Drainage 550 / 550 225 / 225 0 / 0 Other: Meal NPO NPO # Bowel Movements 0 Weight 81.5 kg Blood Glucose* 106 114 103 Patient Weight 10/25/16 23:59 Weight 81.5 kg - General physical appearance chronically ill - Eyes normal ocular movement - ENT dry mucosa, atraumatic, normocephalic - Neck Neck exam: trachea midline - Respiratory rales: bilateral - Cardiovascular Cardiovascular exam: Present: irregular rhythm - Abdomen Abdomen: Present: bowel sounds present, soft, non tender, wound (abdomen with old peg tube site with clean and dry dressing ) - Genitourinary other (patel catheter to SD with clear, yellow urine) - Musculoskeletal other (severe deconditioning) - Psychiatric other (patient calm today, lucid during my exam - mental status known to wax and wane, in soft restraints) - Labs 10/23/16 13:36 10/25/16 07:58 Diabetes panel 10/25/16 Range/Units 07:58 Sodium 154 H D (136-145) mEq/L Potassium 3.8 D (3.5-4.5) mEq/L Chloride 98 (98-109) mEq/L Carbon Dioxide 46 H* (19-29) mEq/L BUN 47 H D (8-26) mg/dL Creatinine 0.69 L (0.72-1.25) mg/dL Glucose 113 H (70-99) mg/dL Calcium 8.6 (8.6-10.8) mg/dL AST 21 (5-34) Units/L ALT 6 (0-55) Units/L Alkaline Phosphatase 41 (38-126) Units/L Albumin 2.0 L D (3.5-5.0) g/dL Calcium panel 10/24/16 10/25/16 Range/Units 16:55 07:58 Calcium 8.6 (8.6-10.8) mg/dL Phosphorus 2.0 L (2.3-4.7) mg/dL Albumin 2.0 L D (3.5-5.0) g/dL Pituitary panel 10/25/16 Range/Units 07:58 Sodium 154 H D (136-145) mEq/L Potassium 3.8 D (3.5-4.5) mEq/L Chloride 98 (98-109) mEq/L Carbon Dioxide 46 H* (19-29) mEq/L BUN 47 H D (8-26) mg/dL Creatinine 0.69 L (0.72-1.25) mg/dL Glucose 113 H (70-99) mg/dL Calcium 8.6 (8.6-10.8) mg/dL Adrenal panel 10/25/16 Range/Units 07:58 Sodium 154 H D (136-145) mEq/L Potassium 3.8 D (3.5-4.5) mEq/L Chloride 98 (98-109) mEq/L Carbon Dioxide 46 H* (19-29) mEq/L BUN 47 H D (8-26) mg/dL Creatinine 0.69 L (0.72-1.25) mg/dL Glucose 113 H (70-99) mg/dL Calcium 8.6 (8.6-10.8) mg/dL Total Bilirubin 0.4 (0.2-1.2) mg/dL AST 21 (5-34) Units/L ALT 6 (0-55) Units/L Alkaline Phosphatase 41 (38-126) Units/L Albumin 2.0 L D (3.5-5.0) g/dL Consult Discharge Plan - Plan Additional Instructions: Use abdominal binder to keep patient from pulling PEG tube out. Referrals: Rasheed Suarez [Primary Care Provider] - <Perfecto Jeronimo - Last Filed: 10/26/16 12:35> Objective Vital Signs - Last 8 Hours Temp Pulse Resp BP Pulse Ox 10/26/16 10:38 97.1 F L 97 18 94/59 95 10/26/16 08:00 94 L 10/26/16 07:58 14 93 L 10/26/16 06:35 98.2 F 85 18 110/85 94 L Intake and Output 10/25/16 10/26/16 10/26/16 23:59 07:59 15:59 Intake Total 345 / 470 1100 / 1100 240 / 240 Output Total 500 / 500 350 / 350 200 / 200 Balance -155 / -30 750 / 750 40 / 40 Intake: IV Fluids 225 / 350 1100 / 1100 0.9 % Sodium Chloride 1, 1000 / 1000 000 ML @ 50 mls/hr IVC . Q20H [facility] Rx#:[id number] Cardizem 125 MG In 125 / 250 Dextrose 5% 100 ML @ 5 MG /HR 5 mls/hr IVC .Q24H [facility] Rx#:[id number] Doxycycline 100 MG In 0.9 100 / 100 100 / 100 % Sodium Chloride (Mini- Bag +) 100 ML @ 100 mls/ hr IVPB Q12HR [facility] Rx#: [id number] Oral 120 / 120 240 / 240 Output: Catheter 500 / 500 350 / 350 200 / 200 Other: Meal Dinner Breakfast Percent of Meal Consumed 5% 25% Stool Size Copious Moderate Moderate Stool Consistency liquid soft soft Stool Color Brown Brown Brown Green Green # Bowel Movement Diapers 1 1 1 Blood Glucose* 102 170 - Labs 10/23/16 13:36 10/26/16 03:45 Diabetes panel 10/26/16 Range/Units 03:45 Sodium 153 H (136-145) mEq/L Potassium 2.8 L D (3.5-4.5) mEq/L Chloride 103 (98-109) mEq/L Carbon Dioxide 39 H (19-29) mEq/L BUN 31 H D (8-26) mg/dL Creatinine 0.59 L (0.72-1.25) mg/dL Glucose 115 H (70-99) mg/dL Calcium 8.8 (8.6-10.8) mg/dL AST 23 (5-34) Units/L ALT < 6 (0-55) Units/L Alkaline Phosphatase 43 (38-126) Units/L Albumin 2.2 L (3.5-5.0) g/dL Calcium panel 10/26/16 Range/Units 03:45 Calcium 8.8 (8.6-10.8) mg/dL Albumin 2.2 L (3.5-5.0) g/dL Pituitary panel 10/26/16 Range/Units 03:45 Sodium 153 H (136-145) mEq/L Potassium 2.8 L D (3.5-4.5) mEq/L Chloride 103 (98-109) mEq/L Carbon Dioxide 39 H (19-29) mEq/L BUN 31 H D (8-26) mg/dL Creatinine 0.59 L (0.72-1.25) mg/dL Glucose 115 H (70-99) mg/dL Calcium 8.8 (8.6-10.8) mg/dL Adrenal panel 10/26/16 Range/Units 03:45 Sodium 153 H (136-145) mEq/L Potassium 2.8 L D (3.5-4.5) mEq/L Chloride 103 (98-109) mEq/L Carbon Dioxide 39 H (19-29) mEq/L BUN 31 H D (8-26) mg/dL Creatinine 0.59 L (0.72-1.25) mg/dL Glucose 115 H (70-99) mg/dL Calcium 8.8 (8.6-10.8) mg/dL Total Bilirubin 0.4 (0.2-1.2) mg/dL AST 23 (5-34) Units/L ALT < 6 (0-55) Units/L Alkaline Phosphatase 43 (38-126) Units/L Albumin 2.2 L (3.5-5.0) g/dL - Attending Attestation I examined this patient and my medical decision-making was reviewed with the [employer] ASSEMBLER/PA/Advanced Practice Nurse/Resident Physician. I agree with the documented findings, disposition and treatment plan as described except to the extent set forth below. Perfecto Jeronimo MD
--- NOTE | 2016-10-25 17:02 | Internal Med Progress Note ---
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 , aspiration precautions, pulled Peg tube twice in the past, family to decide on level of care Qualifiers: Dysphagia type: unspecified Qualified Code(s): R13.10 - Dysphagia, unspecified (2) Atrial fibrillation Current Visit: Yes Status: Acute Assessment and plan: rate better control , continue cardizem drip for now , cardiology following Qualifiers: Atrial fibrillation type: chronic Qualified Code(s): I48.2 - Chronic atrial fibrillation (3) Dementia Current Visit: Yes Status: Chronic Assessment and plan: at base line Qualifiers: Dementia type: Alzheimer's disease Alzheimer's disease onset: unspecified onset Dementia behavioral disturbance: with behavioral disturbance Qualified Code(s): G30.8 - Other Alzheimer's disease; F02.81 - Dementia in other diseases classified elsewhere with behavioral disturbance (4) Pneumonia Current Visit: Yes Status: Acute Assessment and plan: possible pneumonia in left lower lobe will repeat check x ray on empiric antibiotics Qualifiers: Aspiration pneumonia type: due to gastric secretions Lung location: unspecified part of lung Qualified Code(s): J69.0 - Pneumonitis due to inhalation of food and vomit - Subjective Interval history: Pt feels better , Heart rate better control tolerating thickened liquids, no signs of overt aspiration - Constitutional Vitals: Temp Pulse Resp BP Pulse Ox 97.6 F 107 20 122/66 93 L 10/25/16 15:12 10/25/16 15:12 10/25/16 15:12 10/25/16 15:12 10/25/16 15:12 General appearance: Present: A&O X 3, no acute distress (frail appearing elderly male). Absent: A&O X 1, A&O X 2 - Respiratory Respiratory exam: Present: decreased breath sounds - Cardiovascular Cardiovascular exam: Present: irregular rhythm - GI/Abdominal GI/Abdominal exam: Present: normal bowel sounds, soft - Extremities Exam Additional comments: no edema Internal Medicine: Result - Labs CBC & Chem 7: 10/23/16 13:36 10/25/16 07:58 Labs: BMP 10/25/16 07:58 Sodium 154 H D Potassium 3.8 D Chloride 98 Carbon Dioxide 46 H* BUN 47 H D Creatinine 0.69 L Glucose 113 H Calcium 8.6 Liver Function 10/25/16 Range/Units 07:58 Total Bilirubin 0.4 (0.2-1.2) mg/dL AST 21 (5-34) Units/L ALT 6 (0-55) Units/L Alkaline Phosphatase 41 (38-126) Units/L Albumin 2.0 L D (3.5-5.0) g/dL - ABG Interpretation ABG results: PT/INR, D-dimer PT 13.1 Seconds (9.4-12.1) H 10/23/16 13:36 D-Dimer 2229 ng/mLFEU (0-500) H 10/23/16 13:36 - Impressions Impressions Upper GI Series 10/25/16 09:41 IMPRESSION: Limited examination without evidence of a gastric leak. D/ / Wilfred Stephens MD / Wilfred Stephens MD Interpreting Provider: Wilfred Stephens MD Consult Discharge Plan - Plan Additional Instructions: Use abdominal binder to keep patient from pulling PEG tube out. Referrals: Rasheed Suarez [Primary Care Provider] -
[2016-10-26 04:09] LABS: Albumin 2.2 g/dL (3.5-5.0); Albumin/Globulin Ratio 0.7 (1.1-2.2); Alkaline Phosphatase 43 Units/L (38-126); Aspartate Amino Transferase 23 Units/L (5-34); BUN/Creatinine Ratio 53 (6-26); Bilirubin,Total 0.4 mg/dL (0.2-1.2); Calcium 8.8 mg/dL (8.6-10.8); Carbon Dioxide 39 mEq/L (19-29); Chloride 103 mEq/L (98-109); Globulin 3.3 g/dL (2.4-3.5); Glucose 115 mg/dL (70-99); Osmolality,Calculated 323 (280-300); Potassium 2.8 mEq/L (3.5-4.5); Sodium 153 mEq/L (136-145); Total Protein 5.5 g/dL (6.0-8.3); eGFR For African Americans > 60 (> 60); eGFR For Non-African Americans > 60 (> 60)
[2016-10-26 04:10] LABS: Alanine Aminotransferase < 6 Units/L (0-55); Blood Urea Nitrogen 31 mg/dL (8-26)
[2016-10-26] MEDS: Pantoprazole 40 MG VIAL IVP SCH ×2 (05:45→17:34)
[2016-10-26] MEDS: Doxycycline 100 MG in 0.9 % Sodium Chloride Mini Bag 100 ML IVPB SCH ×2 (05:45→17:34)
[2016-10-26] MEDS: 0.9 % Sodium Chloride 1,000 ML IVC SCH (05:46)
[2016-10-26] MEDS: Budesonide/Formoterol 80/4.5 MDI IH SCH ×2 (07:58→20:16)
--- NOTE | 2016-10-26 08:12 | General Surgery Progress Note ---
<Michelle Mckeon - Last Filed: 10/26/16 11:08> Date of Encounter: 10/26/16 Time of Encounter: 08:09 - Assessment and Plan (1) Dislodged gastrostomy tube Current Visit: Yes Status: Acute Patient has removed peg tube twice within one week Currently on pureed diet Family to decide what level of care to pursue (2) Hypokalemia Current Visit: No Status: Acute K 2.8 this AM, 3.8 yesterday KCL elixer 40 meq BID repeat BMP at 4pm repeat AM labs (3) Dysphagia Current Visit: Yes Status: Chronic Currently on pureed diet Has previously not been able to take in adequate calories by mouth Nutrition will need to be discussed at a family meeting Qualifiers: Dysphagia type: unspecified Qualified Code(s): R13.10 - Dysphagia, unspecified (4) Acute on chronic congestive heart failure Current Visit: No Status: Acute management per medicine service Qualifiers: Congestive heart failure type: combined Qualified Code(s): I50.43 - Acute on chronic combined systolic (congestive) and diastolic (congestive) heart failure (5) Altered mental status Current Visit: No Status: Acute patient currently calm and lucid Qualifiers: Altered mental status type: delirium Qualified Code(s): R41.0 - Disorientation, unspecified (6) Atrial fibrillation with RVR Current Visit: No Status: Acute rate controlled Cardizem gtt Management per medicine service (7) Goals of care, counseling/discussion Current Visit: No Status: Acute Palliative care on board (8) Physical deconditioning Current Visit: No Status: Chronic Subjective Patient reports: no new complaints, other (calm and lucid during exam) Objective Vital Signs - Last 8 Hours Temp Pulse Resp BP Pulse Ox 10/26/16 08:00 94 L 10/26/16 07:58 14 93 L 10/26/16 06:35 98.2 F 85 18 110/85 94 L 10/26/16 04:00 97.7 F 107 18 101/63 94 L 10/26/16 00:23 97.4 F L 100 18 98/60 97 Intake and Output 10/25/16 10/26/16 10/26/16 23:59 07:59 15:59 Intake Total 345 / 470 1100 / 1100 Output Total 500 / 500 350 / 350 Balance -155 / -30 750 / 750 Intake: IV Fluids 225 / 350 1100 / 1100 0.9 % Sodium Chloride 1, 1000 / 1000 000 ML @ 50 mls/hr IVC . Q20H [facility] Rx#:[id number] Cardizem 125 MG In 125 / 250 Dextrose 5% 100 ML @ 5 MG /HR 5 mls/hr IVC .Q24H [facility] Rx#:[id number] Doxycycline 100 MG In 0.9 100 / 100 100 / 100 % Sodium Chloride (Mini- Bag +) 100 ML @ 100 mls/ hr IVPB Q12HR [facility] Rx#: [id number] Oral 120 / 120 Output: Catheter 500 / 500 350 / 350 Other: Meal Dinner Percent of Meal Consumed 5% Stool Size Copious Moderate Stool Consistency liquid soft Stool Color Brown Brown Green # Bowel Movement Diapers 1 1 Blood Glucose* 102 - General physical appearance chronically ill - Eyes normal ocular movement - ENT dry mucosa, atraumatic, normocephalic - Neck Neck exam: trachea midline - Respiratory rales: bilateral - Cardiovascular Cardiovascular exam: Present: irregular rhythm - Abdomen Abdomen: Present: bowel sounds present, soft, non tender, wound (abdomen with old peg tube site with clean and dry dressing) - Genitourinary other (patel catheter to SD with clear, yellow urine) - Integumentary no rash - Neurologic CN 2-12 grossly intact - Musculoskeletal other (severe deconditioning) - Psychiatric other (calm and lucid today) - Labs 10/23/16 13:36 10/26/16 03:45 Diabetes panel 10/26/16 Range/Units 03:45 Sodium 153 H (136-145) mEq/L Potassium 2.8 L D (3.5-4.5) mEq/L Chloride 103 (98-109) mEq/L Carbon Dioxide 39 H (19-29) mEq/L BUN 31 H D (8-26) mg/dL Creatinine 0.59 L (0.72-1.25) mg/dL Glucose 115 H (70-99) mg/dL Calcium 8.8 (8.6-10.8) mg/dL AST 23 (5-34) Units/L ALT < 6 (0-55) Units/L Alkaline Phosphatase 43 (38-126) Units/L Albumin 2.2 L (3.5-5.0) g/dL Calcium panel 10/26/16 Range/Units 03:45 Calcium 8.8 (8.6-10.8) mg/dL Albumin 2.2 L (3.5-5.0) g/dL Pituitary panel 10/26/16 Range/Units 03:45 Sodium 153 H (136-145) mEq/L Potassium 2.8 L D (3.5-4.5) mEq/L Chloride 103 (98-109) mEq/L Carbon Dioxide 39 H (19-29) mEq/L BUN 31 H D (8-26) mg/dL Creatinine 0.59 L (0.72-1.25) mg/dL Glucose 115 H (70-99) mg/dL Calcium 8.8 (8.6-10.8) mg/dL Adrenal panel 10/26/16 Range/Units 03:45 Sodium 153 H (136-145) mEq/L Potassium 2.8 L D (3.5-4.5) mEq/L Chloride 103 (98-109) mEq/L Carbon Dioxide 39 H (19-29) mEq/L BUN 31 H D (8-26) mg/dL Creatinine 0.59 L (0.72-1.25) mg/dL Glucose 115 H (70-99) mg/dL Calcium 8.8 (8.6-10.8) mg/dL Total Bilirubin 0.4 (0.2-1.2) mg/dL AST 23 (5-34) Units/L ALT < 6 (0-55) Units/L Alkaline Phosphatase 43 (38-126) Units/L Albumin 2.2 L (3.5-5.0) g/dL Consult Discharge Plan - Plan Additional Instructions: Use abdominal binder to keep patient from pulling PEG tube out. Referrals: Rasheed Suarez [Primary Care Provider] - <Perfecto Jeronimo - Last Filed: 10/26/16 12:41> Objective Vital Signs - Last 8 Hours Temp Pulse Resp BP Pulse Ox 10/26/16 10:38 97.1 F L 97 18 94/59 95 10/26/16 08:00 94 L 10/26/16 07:58 14 93 L 10/26/16 06:35 98.2 F 85 18 110/85 94 L Intake and Output 10/25/16 10/26/16 10/26/16 23:59 07:59 15:59 Intake Total 345 / 470 1100 / 1100 240 / 240 Output Total 500 / 500 350 / 350 200 / 200 Balance -155 / -30 750 / 750 40 / 40 Intake: IV Fluids 225 / 350 1100 / 1100 0.9 % Sodium Chloride 1, 1000 / 1000 000 ML @ 50 mls/hr IVC . Q20H [facility] Rx#:[id number] Cardizem 125 MG In 125 / 250 Dextrose 5% 100 ML @ 5 MG /HR 5 mls/hr IVC .Q24H [facility] Rx#:[id number] Doxycycline 100 MG In 0.9 100 / 100 100 / 100 % Sodium Chloride (Mini- Bag +) 100 ML @ 100 mls/ hr IVPB Q12HR [facility] Rx#: [id number] Oral 120 / 120 240 / 240 Output: Catheter 500 / 500 350 / 350 200 / 200 Other: Meal Dinner Breakfast Percent of Meal Consumed 5% 25% Stool Size Copious Moderate Moderate Stool Consistency liquid soft soft Stool Color Brown Brown Brown Green Green # Bowel Movement Diapers 1 1 1 Blood Glucose* 102 170 - Labs 10/23/16 13:36 10/26/16 03:45 Diabetes panel 10/26/16 Range/Units 03:45 Sodium 153 H (136-145) mEq/L Potassium 2.8 L D (3.5-4.5) mEq/L Chloride 103 (98-109) mEq/L Carbon Dioxide 39 H (19-29) mEq/L BUN 31 H D (8-26) mg/dL Creatinine 0.59 L (0.72-1.25) mg/dL Glucose 115 H (70-99) mg/dL Calcium 8.8 (8.6-10.8) mg/dL AST 23 (5-34) Units/L ALT < 6 (0-55) Units/L Alkaline Phosphatase 43 (38-126) Units/L Albumin 2.2 L (3.5-5.0) g/dL Calcium panel 10/26/16 Range/Units 03:45 Calcium 8.8 (8.6-10.8) mg/dL Albumin 2.2 L (3.5-5.0) g/dL Pituitary panel 10/26/16 Range/Units 03:45 Sodium 153 H (136-145) mEq/L Potassium 2.8 L D (3.5-4.5) mEq/L Chloride 103 (98-109) mEq/L Carbon Dioxide 39 H (19-29) mEq/L BUN 31 H D (8-26) mg/dL Creatinine 0.59 L (0.72-1.25) mg/dL Glucose 115 H (70-99) mg/dL Calcium 8.8 (8.6-10.8) mg/dL Adrenal panel 10/26/16 Range/Units 03:45 Sodium 153 H (136-145) mEq/L Potassium 2.8 L D (3.5-4.5) mEq/L Chloride 103 (98-109) mEq/L Carbon Dioxide 39 H (19-29) mEq/L BUN 31 H D (8-26) mg/dL Creatinine 0.59 L (0.72-1.25) mg/dL Glucose 115 H (70-99) mg/dL Calcium 8.8 (8.6-10.8) mg/dL Total Bilirubin 0.4 (0.2-1.2) mg/dL AST 23 (5-34) Units/L ALT < 6 (0-55) Units/L Alkaline Phosphatase 43 (38-126) Units/L Albumin 2.2 L (3.5-5.0) g/dL - Attending Attestation I examined this patient and my medical decision-making was reviewed with the SCRAPER TENDER/PA/Advanced Practice Nurse/Resident Physician. I agree with the documented findings, disposition and treatment plan as described except to the extent set forth below. Perfecto Jeronimo MD FACS
[2016-10-26] MEDS ORDERED: Potassium Chloride Elixir 20 MEQ/15 ML UDC PO SCH ×2 (09:00→21:00)
[2016-10-26] MEDS ORDERED: Nitroglycerin 0.4 MG TAB.SUBL SL ONE (09:27)
[2016-10-26] MEDS: Metoprolol XL (24 HR) Succ 25 MG TAB.ER.24H PO SCH (09:35)
[2016-10-26] MEDS: Rivastigmine Patch 4.6 MG PATCH.TD24 TD SCH (09:35)
[2016-10-26] MEDS: Potassium Chloride Elixir 20 MEQ/15 ML UDC PO SCH ×5 (09:35→23:42)
[2016-10-26] MEDS: Nitroglycerin 0.4 MG TAB.SUBL SL PRN ×5 (09:36→19:42)
--- NOTE | 2016-10-26 11:23 | Palliative Progress Note ---
Date of Encounter: 10/26/16 Time of Encounter: 07:20 - Assessment and plan (1) Agitation Current Visit: Yes Status: Acute Assessment and plan: Patient is doing well this morning, has not used any Haldol. She states he is trying to eat, has no complaints of it this time. She is no longer restrained. (2) Dislodged gastrostomy tube Current Visit: Yes Status: Acute Assessment and plan: Since been removed a couple of times, at this point no plans or in place to replace it. It is now able to eat and is on a diet. (3) Dysphagia Current Visit: Yes Status: Chronic Assessment and plan: Patient is now able to eat and is doing so. Plan is not to put the PEG tube back consequently if the patient does not take in enough nourishment he will suffer the results of this. The the patient is willing to eat, and is being given the opportunity to do so. As the patient is able to eat and is willing to do so he is not hospice eligible based on failure to thrive at this time however this may change in the not too distant future. Continue to have discussions with patient and family. Family not present during rounds. Qualifiers: Dysphagia type: unspecified Qualified Code(s): R13.10 - Dysphagia, unspecified (4) Counseling regarding advanced care planning and goals of care Current Visit: Yes Status: Acute Assessment and plan: Patient is a full code. This goal was established during his last hospitalization when he wanted to have full aggressive care. At this time the patient is back to eating, and is cooperating with this treatment. A PEG tube had been placed to supplement his nutrition. However he pulled this out on 2 occasions. And there is no plan to replace it. Patient will have to get a normal amount of nourishment by mouth. No family is available at this time we will follow up tomorrow. (5) Dementia Current Visit: Yes Status: Chronic Assessment and plan: Continue current meds continue to follow Qualifiers: Dementia type: Alzheimer's disease Alzheimer's disease onset: unspecified onset Dementia behavioral disturbance: with behavioral disturbance Qualified Code(s): G30.8 - Other Alzheimer's disease; F02.81 - Dementia in other diseases classified elsewhere with behavioral disturbance - Time Spent With Patient Total time spent is greater than 50% in coordination of care (as documented) at patient's floor/unit and/or counseling patient: - Subjective Interval history: Patient is calm this morning NG tube is out and patient's no longer restrained. Patient is awake and alert and able to tell me that he is not having any discomfort, however like he may need a little bit more Lasix. He states he does have some appetite and is trying to eat. - Constitutional Vitals: Abnormal lab results RBC 3.33 M/mcL (4.19-5.50) L 10/23/16 13:36 Hgb 10.0 g/dL (12.9-16.9) L 10/23/16 13:36 Hct 33.7 % (37.5-50.1) L 10/23/16 13:36 MCV 101.2 fL (83.0-100.0) H 10/23/16 13:36 MCHC 29.7 g/dL (31.6-35.5) L 10/23/16 13:36 RDW 14.9 % (11.5-14.5) H 10/23/16 13:36 Neutrophils # 9.3 K/mcL (1.6-8.9) H 10/23/16 13:36 Hypochromasia Present (Not Present) A 10/23/16 13:36 Poikilocytosis 1+ (Not Present) A 10/23/16 13:36 Basophilic Stippling 1+ (Not Present) A 10/23/16 13:36 PT 13.1 Seconds (9.4-12.1) H 10/23/16 13:36 APTT 49.6 Seconds (26.0-36.0) H 10/23/16 13:36 D-Dimer 2229 ng/mLFEU (0-500) H 10/23/16 13:36 Sodium 153 mEq/L (136-145) H 10/26/16 03:45 Potassium 2.8 mEq/L (3.5-4.5) L D 10/26/16 03:45 Carbon Dioxide 39 mEq/L (19-29) H 10/26/16 03:45 BUN 31 mg/dL (8-26) H D 10/26/16 03:45 Creatinine 0.59 mg/dL (0.72-1.25) L 10/26/16 03:45 BUN/Creatinine Ratio 53 (6-26) H 10/26/16 03:45 Glucose 115 mg/dL (70-99) H 10/26/16 03:45 POC Glucose 102 (58-89) H 10/26/16 05:14 Calculated Osmolality 323 (280-300) H 10/26/16 03:45 Phosphorus 2.0 mg/dL (2.3-4.7) L 10/24/16 16:55 Troponin I 0.26 ng/mL (0-0.03) H* 10/26/16 09:40 Serum Total Protein 5.5 g/dL (6.0-8.3) L 10/26/16 03:45 Albumin 2.2 g/dL (3.5-5.0) L 10/26/16 03:45 Albumin/Globulin Ratio 0.7 (1.1-2.2) L 10/26/16 03:45 General appearance: Present: no acute distress - Head Head exam: Present: atraumatic, normal inspection - Eye Eye exam: Present: normal appearance - ENT ENT exam: Present: mucous membranes moist - Respiratory Respiratory exam: Present: decreased breath sounds, rales - Cardiovascular Cardiovascular exam: Present: irregular rhythm - GI/Abdominal GI/Abdominal exam: Present: normal bowel sounds, soft, tenderness (Tender in the area with a PEG tube was.) - Extremities Exam Extremities exam: Present: normal inspection. Absent: pedal edema (Do not appreciate any pedal edema.), tenderness - Neurological Exam Neurological exam: Present: alert - Psychiatric Psychiatric exam: Present: normal affect, normal mood. Absent: agitated, anxious - Skin Skin exam: Present: dry, warm Palliative Quality Palliative Quality: Screen for Code Status: Yes, Screen for Goals of Care: Yes, Screen for Pain: Yes, If Pain Regimen Started, Initiate Bowel Regimen: NA, Screen for Nausea/Vomitting: Yes - Labs CBC & Chem 7: 10/23/16 13:36 10/26/16 03:45 Labs: Laboratory Results - last 24 hr 10/26/16 10/26/16 10/26/16 00:21 03:45 05:14 Sodium 153 H Potassium 2.8 L D Chloride 103 Carbon Dioxide 39 H BUN 31 H D Creatinine 0.59 L Est GFR ( Amer) > 60 Est GFR (Non-Af Amer) > 60 BUN/Creatinine Ratio 53 H Glucose 115 H POC Glucose 106 H 102 H Calculated Osmolality 323 H Calcium 8.8 Total Bilirubin 0.4 AST 23 ALT < 6 Alkaline Phosphatase 43 Troponin I Serum Total Protein 5.5 L Albumin 2.2 L Globulin 3.3 Albumin/Globulin Ratio 0.7 L 10/26/16 09:40 Sodium Potassium Chloride Carbon Dioxide BUN Creatinine Est GFR ( Amer) Est GFR (Non-Af Amer) BUN/Creatinine Ratio Glucose POC Glucose Calculated Osmolality Calcium Total Bilirubin AST ALT Alkaline Phosphatase Troponin I 0.26 H* Serum Total Protein Albumin Globulin Albumin/Globulin Ratio - Impressions Impressions Chest X-Ray 10/26/16 07:00 IMPRESSION: Improved perihilar congestive changes. Continued right basilar opacification and effusion. D/ / 10/26/2016 08:15:05 Kyaw Taylor MD / [facility] Interpreting Provider: Kyaw Taylor MD - ABG Interpretation ABG results: PT/INR, D-dimer PT 13.1 Seconds (9.4-12.1) H 10/23/16 13:36 D-Dimer 2229 ng/mLFEU (0-500) H 10/23/16 13:36 Consult Discharge Plan - Plan Additional Instructions: Use abdominal binder to keep patient from pulling PEG tube out. Referrals: Rasheed Suarez [Primary Care Provider] -
--- NOTE | 2016-10-26 16:13 | Internal Med Progress Note ---
Date of Encounter: 10/26/16 Time of Encounter: 10:15 - Assessment and plan (1) Atrial fibrillation Current Visit: Yes Status: Acute Assessment and plan: Proving control. Will start by mouth metoprolol as patient had good response to it. Wean off Cardizem drip Qualifiers: Atrial fibrillation type: chronic Qualified Code(s): I48.2 - Chronic atrial fibrillation (2) Pneumonia Current Visit: Yes Status: Acute Assessment and plan: On doxycycline. Will continue. Qualifiers: Aspiration pneumonia type: due to gastric secretions Lung location: unspecified part of lung Qualified Code(s): J69.0 - Pneumonitis due to inhalation of food and vomit (3) Dementia Current Visit: Yes Status: Chronic Qualifiers: Dementia type: Alzheimer's disease Alzheimer's disease onset: unspecified onset Dementia behavioral disturbance: with behavioral disturbance Qualified Code(s): G30.8 - Other Alzheimer's disease; F02.81 - Dementia in other diseases classified elsewhere with behavioral disturbance (4) Dysphagia Current Visit: Yes Status: Chronic Assessment and plan: Surgery palliative care following. Currently on pureed diet Qualifiers: Dysphagia type: unspecified Qualified Code(s): R13.10 - Dysphagia, unspecified (5) Chest pain Current Visit: Yes Status: Acute Assessment and plan: Troponins have been checked. initial was 0.26. Patient does have chronic troponin elevation. We will trend troponins. Qualifiers: Chest pain type: precordial chest pain Qualified Code(s): R07.2 - Precordial pain (6) Left upper extremity swelling Current Visit: Yes Status: Acute Assessment and plan: Swelling of the left upper extremity. Will get venous Doppler to rule out any DVT. Most likely edema due to third spacing. (7) Hypokalemia Current Visit: No Status: Acute Assessment and plan: Replaced. Potassium 2.8. - Subjective Interval history: Patient complains of chest pain. Has intermittent chronic chest pain and takes nitroglycerin at home for it. Denies any shortness of breath at this time. No palpitations. - Constitutional Vitals: Temp Pulse Resp BP Pulse Ox 96.5 F L 105 20 79/59 98 10/26/16 15:16 10/26/16 15:16 10/26/16 15:16 10/26/16 15:16 10/26/16 15:16 General appearance: Present: mild distress, A&O X 3, answers questions appropriately - Respiratory Respiratory exam: Present: CTAB. Absent: accessory muscle use, rales, rhonchi, wheezes - Cardiovascular Cardiovascular exam: Present: RRR, +S1, +S2. Absent: diastolic murmur, gallop, rubs, systolic murmur - Extremities Exam Extremities exam: Present: warm, radial pulses palpable and symetrical. Absent : calf tenderness, cyanotic, pedal edema Additional comments: Upper extremity swelling present. Nontender to palpation. No signs of infection. - Neurological Exam Neurological exam: Present: CN II-XII intact, oriented X3, no focal deficits. Absent: facial droop, speech deficit - Skin Skin exam: Present: dry, intact Internal Medicine: Result - Labs CBC & Chem 7: 10/23/16 13:36 10/26/16 03:45 Labs: BMP 10/26/16 03:45 Sodium 153 H Potassium 2.8 L D Chloride 103 Carbon Dioxide 39 H BUN 31 H D Creatinine 0.59 L Glucose 115 H Calcium 8.8 Cardiac Enzymes 10/26/16 Range/Units 09:40 Troponin I 0.26 H* (0-0.03) ng/mL Liver Function 10/26/16 Range/Units 03:45 Total Bilirubin 0.4 (0.2-1.2) mg/dL AST 23 (5-34) Units/L ALT < 6 (0-55) Units/L Alkaline Phosphatase 43 (38-126) Units/L Albumin 2.2 L (3.5-5.0) g/dL - ABG Interpretation ABG results: PT/INR, D-dimer PT 13.1 Seconds (9.4-12.1) H 10/23/16 13:36 D-Dimer 2229 ng/mLFEU (0-500) H 10/23/16 13:36 - Impressions Impressions Chest X-Ray 10/26/16 07:00 IMPRESSION: Improved perihilar congestive changes. Continued right basilar opacification and effusion. D/ / 10/26/2016 08:15:05 Kyaw Taylor MD / [facility] Interpreting Provider: Kyaw Taylor MD Consult Discharge Plan - Plan Additional Instructions: Use abdominal binder to keep patient from pulling PEG tube out. Referrals: Rasheed Suarez [Primary Care Provider] - - Attending Attestation This document has been at least partially created by [employer] recognition technology by Dr. Alegria. Errors in grammar, wording or other phrases may exist. If errors are found after the documentation is signed, they will be addressed individually in the addendum section of this document when appropriate. Medical Decision Making - MDM Narrative Medical decision making narrative: Moderate risk for complications - Medical Records Medical records reviewed: Yes I reviewed the patient's medical records. - Lab Data Result diagrams: 10/23/16 13:36 10/26/16 03:45 Lab Results 10/26/16 10/26/16 10/26/16 Range/Units 00:21 03:45 05:14 Sodium 153 H (136-145) mEq/L Potassium 2.8 L D (3.5-4.5) mEq/L Chloride 103 (98-109) mEq/L Carbon Dioxide 39 H (19-29) mEq/L BUN 31 H D (8-26) mg/dL Creatinine 0.59 L (0.72-1.25) mg/dL Est GFR ( Amer) > 60 (> 60) Est GFR (Non-Af Amer) > 60 (> 60) BUN/Creatinine Ratio 53 H (6-26) Glucose 115 H (70-99) mg/dL POC Glucose 106 H 102 H (58-89) Calculated Osmolality 323 H (280-300) Calcium 8.8 (8.6-10.8) mg/dL Total Bilirubin 0.4 (0.2-1.2) mg/dL AST 23 (5-34) Units/L ALT < 6 (0-55) Units/L Alkaline Phosphatase 43 (38-126) Units/L Troponin I (0-0.03) ng/mL Serum Total Protein 5.5 L (6.0-8.3) g/dL Albumin 2.2 L (3.5-5.0) g/dL Globulin 3.3 (2.4-3.5) g/dL Albumin/Globulin Ratio 0.7 L (1.1-2.2) 10/26/16 10/26/16 Range/Units 09:40 11:46 Sodium (136-145) mEq/L Potassium (3.5-4.5) mEq/L Chloride (98-109) mEq/L Carbon Dioxide (19-29) mEq/L BUN (8-26) mg/dL Creatinine (0.72-1.25) mg/dL Est GFR ( Amer) (> 60) Est GFR (Non-Af Amer) (> 60) BUN/Creatinine Ratio (6-26) Glucose (70-99) mg/dL POC Glucose 170 H (58-89) Calculated Osmolality (280-300) Calcium (8.6-10.8) mg/dL Total Bilirubin (0.2-1.2) mg/dL AST (5-34) Units/L ALT (0-55) Units/L Alkaline Phosphatase (38-126) Units/L Troponin I 0.26 H* (0-0.03) ng/mL Serum Total Protein (6.0-8.3) g/dL Albumin (3.5-5.0) g/dL Globulin (2.4-3.5) g/dL Albumin/Globulin Ratio (1.1-2.2)
[2016-10-26 20:02] LABS: BUN/Creatinine Ratio 38 (6-26); Blood Urea Nitrogen 25 mg/dL (8-26); Calcium 8.4 mg/dL (8.6-10.8); Carbon Dioxide 37 mEq/L (19-29); Chloride 103 mEq/L (98-109); Glucose 130 mg/dL (70-99); Osmolality,Calculated 312 (280-300); Potassium 3.5 mEq/L (3.5-4.5); Sodium 148 mEq/L (136-145); eGFR For African Americans > 60 (> 60); eGFR For Non-African Americans > 60 (> 60)
[2016-10-27] MEDS: 0.9 % Sodium Chloride 1,000 ML IVC SCH (04:48)
[2016-10-27] MEDS: Potassium Chloride Elixir 20 MEQ/15 ML UDC PO SCH (04:49)
[2016-10-27] MEDS: Doxycycline 100 MG in 0.9 % Sodium Chloride Mini Bag 100 ML IVPB SCH ×2 (05:02→19:17)
[2016-10-27] MEDS: Pantoprazole 40 MG VIAL IVP SCH ×2 (05:02→19:17)
[2016-10-27 07:01] LABS: BUN/Creatinine Ratio 34 (6-26); Blood Urea Nitrogen 22 mg/dL (8-26); Calcium 8.6 mg/dL (8.6-10.8); Carbon Dioxide 35 mEq/L (19-29); Chloride 104 mEq/L (98-109); Glucose 103 mg/dL (70-99); Osmolality,Calculated 310 (280-300); Sodium 148 mEq/L (136-145); eGFR For African Americans > 60 (> 60); eGFR For Non-African Americans > 60 (> 60)
[2016-10-27 07:04] LABS: Potassium 4.8 mEq/L (3.5-4.5)
--- NOTE | 2016-10-27 07:24 | General Surgery Progress Note ---
<HusseinbatshevakimberlyMichelle potts - Last Filed: 10/27/16 08:17> Date of Encounter: 10/27/16 Time of Encounter: 07:22 - Assessment and Plan (1) Dislodged gastrostomy tube Status: Acute pureed diet patient taking in oral nutrition plan to discharge to [facility] today (2) Hypokalemia Status: Acute K 4.8 this AM,2.8 yesterday management by medicine service (3) Dysphagia Status: Chronic pureed diet Qualifiers: Dysphagia type: unspecified Qualified Code(s): R13.10 - Dysphagia, unspecified (4) Left upper extremity swelling Status: Acute management per medicine service (5) Acute on chronic congestive heart failure Status: Acute management per medicine service Qualifiers: Congestive heart failure type: combined Qualified Code(s): I50.43 - Acute on chronic combined systolic (congestive) and diastolic (congestive) heart failure (6) Altered mental status Status: Acute patient currently calm and lucid Qualifiers: Altered mental status type: delirium Qualified Code(s): R41.0 - Disorientation, unspecified (7) Atrial fibrillation with RVR Status: Acute rate controlled Management per medicine service (8) Goals of care, counseling/discussion Status: Acute Palliative care on board (9) Physical deconditioning Status: Chronic Subjective Patient reports: no new complaints, afebrile, other (calm and lucid) Objective Vital Signs - Last 8 Hours Temp Pulse Resp BP Pulse Ox 10/27/16 04:02 98.0 F 96 25 118/66 100 10/27/16 01:21 97.9 F 126 30 149/82 100 10/27/16 01:15 107 152/81 10/27/16 01:00 103 149/82 10/27/16 00:45 109 143/79 10/27/16 00:35 133 146/78 10/27/16 00:05 129 121/69 10/26/16 23:45 97.6 F 131 30 123/75 100 10/26/16 23:30 130 122/84 94 L Intake and Output 10/26/16 10/26/16 10/27/16 15:59 23:59 07:59 Intake Total 315 / 315 882 / 882 407 / 407 Output Total 200 / 200 325 / 325 Balance 115 / 115 882 / 882 82 / 82 Intake: IV Fluids 75 / 882 / 882 407 / 407 0.9 % Sodium Chloride 1, 742 / 742 258 / 258 000 ML @ 50 mls/hr IVC . Q20H [facility] Rx#:[id number] Cardizem 125 MG In 75 / 75 40 / 40 49 / 49 Dextrose 5% 100 ML @ 5 MG /HR 5 mls/hr IVC .Q24H [facility] Rx#:[id number] Doxycycline 100 MG In 0.9 100 / 100 100 / 100 % Sodium Chloride (Mini- Bag +) 100 ML @ 100 mls/ hr IVPB Q12HR [facility] Rx#: [id number] Oral 240 / 240 Output: Catheter 200 / 200 325 / 325 Other: Meal Lunch Percent of Meal Consumed 0% Stool Size Moderate Smear Stool Consistency loose loose Stool Color Brown Brown Green # Bowel Movements 0 # Bowel Movement Diapers 1 1 Blood Glucose* 170 106 117 - General physical appearance chronically ill - Eyes normal ocular movement - ENT dry mucosa, atraumatic, normocephalic - Neck Neck exam: trachea midline - Respiratory rales: bilateral - Cardiovascular Cardiovascular exam: Present: irregular rhythm - Abdomen Abdomen: Present: bowel sounds present, soft, non tender, wound (abdomen with old peg tube site with clean and dry dressing) - Genitourinary other (patel catheter to SD with clear, yellow urine) - Integumentary no rash - Neurologic CN 2-12 grossly intact - Musculoskeletal other (severe deconditioning) - Psychiatric other (calm and lucid) - Additional Exam 2+ pitting edema; left arm swelling - Labs 10/23/16 13:36 10/27/16 06:42 Diabetes panel 10/26/16 10/27/16 Range/Units 19:40 06:42 Sodium 148 H 148 H (136-145) mEq/L Potassium 3.5 4.8 H D (3.5-4.5) mEq/L Chloride 103 104 (98-109) mEq/L Carbon Dioxide 37 H 35 H (19-29) mEq/L BUN 25 22 (8-26) mg/dL Creatinine 0.65 L 0.65 L (0.72-1.25) mg/dL Glucose 130 H 103 H (70-99) mg/dL Calcium 8.4 L 8.6 (8.6-10.8) mg/dL Calcium panel 10/26/16 10/27/16 Range/Units 19:40 06:42 Calcium 8.4 L 8.6 (8.6-10.8) mg/dL Pituitary panel 10/26/16 10/27/16 Range/Units 19:40 06:42 Sodium 148 H 148 H (136-145) mEq/L Potassium 3.5 4.8 H D (3.5-4.5) mEq/L Chloride 103 104 (98-109) mEq/L Carbon Dioxide 37 H 35 H (19-29) mEq/L BUN 25 22 (8-26) mg/dL Creatinine 0.65 L 0.65 L (0.72-1.25) mg/dL Glucose 130 H 103 H (70-99) mg/dL Calcium 8.4 L 8.6 (8.6-10.8) mg/dL Adrenal panel 10/26/16 10/27/16 Range/Units 19:40 06:42 Sodium 148 H 148 H (136-145) mEq/L Potassium 3.5 4.8 H D (3.5-4.5) mEq/L Chloride 103 104 (98-109) mEq/L Carbon Dioxide 37 H 35 H (19-29) mEq/L BUN 25 22 (8-26) mg/dL Creatinine 0.65 L 0.65 L (0.72-1.25) mg/dL Glucose 130 H 103 H (70-99) mg/dL Calcium 8.4 L 8.6 (8.6-10.8) mg/dL Consult Discharge Plan - Plan Instructions: Atrial Fibrillation (DC), Chest Pain (DC) Additional Instructions: Coccyx- wash with soap and water and pat dry daily, apply Allevyn dressing every 24 hours and prn if soiled Turn every 2 hours PT/OT/Speech daily Prescriptions: Diltiazem CD (24hr) [Cardizem CD] 180 mg PO DAILY #30 cap.er.24h Doxycycline 100 mg PO BID #20 capsule Metoprolol XL (24 HR) Succ [Toprol Xl] 25 mg PO DAILY #30 tab.er.24h <Perfecto Jeronimo - Last Filed: 10/29/16 08:02> Objective - Labs 10/23/16 13:36 10/27/16 06:42 - Attending Attestation I examined this patient and my medical decision-making was reviewed with the REGULATION SUPERVISOR/PA/Advanced Practice Nurse/Resident Physician. I agree with the documented findings, disposition and treatment plan as described except to the extent set forth below. Perfecto Jeronimo MD FACS
[2016-10-27] MEDS: Budesonide/Formoterol 80/4.5 MDI IH SCH ×2 (07:46→23:16)
[2016-10-27] MEDS: Rivastigmine Patch 4.6 MG PATCH.TD24 TD SCH (09:16)
[2016-10-27] MEDS: Diltiazem CD (24hr) 180 MG CAPSULE PO SCH (09:16)
[2016-10-27] MEDS: Metoprolol XL (24 HR) Succ 25 MG TAB.ER.24H PO SCH (09:16)
--- NOTE | 2016-10-27 11:25 | Palliative Progress Note ---
Date of Encounter: 10/27/16 Time of Encounter: 11:20 - Assessment and plan (1) Agitation Current Visit: Yes Status: Acute Assessment and plan: Improved - remains pleasantly confused. (2) Abdominal pain Current Visit: Yes Status: Acute Qualifiers: Abdominal location: unspecified location Qualified Code(s): R10.9 - Unspecified abdominal pain (3) Counseling regarding advanced care planning and goals of care Current Visit: Yes Status: Acute Assessment and plan: Long discussion with , Sallie over telephone. Discussed clinical status and multiple health problems, frequent hospital visits and quality of life. defers all medical decisions to daughter Adore at this time, as daughter Keyon (2nd on POA) is ill and having health problems of her own. Discussed with both and daughter Adore goals of care. Daughter Aodre would like to focus on comfort care and try to maintain him at [facility], instead of continuing trips back to hospital. She requested transition to DNRCC and desires nothing resuscitative to be done to further prolong his life. in agreement. does have plans to be brought to visit him tomorrow from [place]. Discussed that I would complete DNR state form and send copy to [facility] upon his return there. Also discussed with daughter Adore, that is he continues to do poorly, and Medicare will no longer cover skilled days at [facility], she should work with [facility] staff to transition to hospice care. Adore verbalized understanding. (4) Dislodged gastrostomy tube Current Visit: Yes Status: Acute (5) Atrial fibrillation Current Visit: Yes Status: Acute Qualifiers: Atrial fibrillation type: chronic Qualified Code(s): I48.2 - Chronic atrial fibrillation (6) Dysphagia Current Visit: Yes Status: Chronic Assessment and plan: Taking po well this am. Doesn't like nectar thick fluids. Qualifiers: Dysphagia type: unspecified Qualified Code(s): R13.10 - Dysphagia, unspecified - Time Spent With Patient Total time spent is greater than 50% in coordination of care (as documented) at patient's floor/unit and/or counseling patient: 25 - 35 minutes - Subjective Interval history: Patient eating breakfast during my visit. Denies any complaints, states "had some chest pain last night, but Nitro took care of it". Alert and oriented to person and place, however, will make inappropriate statements and is asking me about "outer space" and "silk shavings" on his face. NG out and taking po well. No family present - Constitutional Vitals: Abnormal lab results RBC 3.33 M/mcL (4.19-5.50) L 10/23/16 13:36 Hgb 10.0 g/dL (12.9-16.9) L 10/23/16 13:36 Hct 33.7 % (37.5-50.1) L 10/23/16 13:36 MCV 101.2 fL (83.0-100.0) H 10/23/16 13:36 MCHC 29.7 g/dL (31.6-35.5) L 10/23/16 13:36 RDW 14.9 % (11.5-14.5) H 10/23/16 13:36 Neutrophils # 9.3 K/mcL (1.6-8.9) H 10/23/16 13:36 Hypochromasia Present (Not Present) A 10/23/16 13:36 Poikilocytosis 1+ (Not Present) A 10/23/16 13:36 Basophilic Stippling 1+ (Not Present) A 10/23/16 13:36 PT 13.1 Seconds (9.4-12.1) H 10/23/16 13:36 APTT 49.6 Seconds (26.0-36.0) H 10/23/16 13:36 D-Dimer 2229 ng/mLFEU (0-500) H 10/23/16 13:36 Sodium 148 mEq/L (136-145) H 10/27/16 06:42 Potassium 4.8 mEq/L (3.5-4.5) H D 10/27/16 06:42 Carbon Dioxide 35 mEq/L (19-29) H 10/27/16 06:42 Creatinine 0.65 mg/dL (0.72-1.25) L 10/27/16 06:42 BUN/Creatinine Ratio 34 (6-26) H 10/27/16 06:42 Glucose 103 mg/dL (70-99) H 10/27/16 06:42 POC Glucose 117 (58-89) H 10/27/16 00:22 Calculated Osmolality 310 (280-300) H 10/27/16 06:42 Phosphorus 2.0 mg/dL (2.3-4.7) L 10/24/16 16:55 Troponin I 0.23 ng/mL (0-0.03) H* 10/26/16 16:15 Serum Total Protein 5.5 g/dL (6.0-8.3) L 10/26/16 03:45 Albumin 2.2 g/dL (3.5-5.0) L 10/26/16 03:45 Albumin/Globulin Ratio 0.7 (1.1-2.2) L 10/26/16 03:45 General appearance: Present: no acute distress - Expanded Respiratory Exam Location: rales: Left, Right, Lower - Cardiovascular Cardiovascular exam: Present: irregular rhythm - GI/Abdominal GI/Abdominal exam: Present: normal bowel sounds, soft - Extremities Exam Additional comments: edema to left arm, 2+ bilateral lower extremities - Neurological Exam Neurological exam: Present: alert, altered, strengths equal and symetr throughout Additional comments: Follows simple commands, Oriented to name and place only. makes inappropriate statements at times. - Skin Skin exam: Present: dry, pallor, warm Palliative Quality Palliative Quality: Screen for Code Status: Yes, Screen for Goals of Care: Yes, Screen for Pain: Yes, If Pain Regimen Started, Initiate Bowel Regimen: NA, Screen for Nausea/Vomitting: Yes Code Status: 10/27/16 10:19 DNR [Resuscitation Status: Active] [RES] Routine Comment: Resuscitation Status: DNR-Comfort Care - Labs CBC & Chem 7: 10/23/16 13:36 10/27/16 06:42 Labs: Laboratory Results - last 24 hr 10/26/16 10/26/16 10/26/16 11:46 16:14 16:15 Sodium Potassium Chloride Carbon Dioxide BUN Creatinine Est GFR ( Amer) Est GFR (Non-Af Amer) BUN/Creatinine Ratio Glucose POC Glucose 170 H 106 H Calculated Osmolality Calcium Troponin I 0.23 H* 10/26/16 10/27/16 10/27/16 19:40 00:22 06:42 Sodium 148 H 148 H Potassium 3.5 4.8 H D Chloride 103 104 Carbon Dioxide 37 H 35 H BUN 25 22 Creatinine 0.65 L 0.65 L Est GFR ( Amer) > 60 > 60 Est GFR (Non-Af Amer) > 60 > 60 BUN/Creatinine Ratio 38 H 34 H Glucose 130 H 103 H POC Glucose 117 H Calculated Osmolality 312 H 310 H Calcium 8.4 L 8.6 Troponin I - Impressions Impressions Chest X-Ray 10/26/16 07:00 IMPRESSION: Improved perihilar congestive changes. Continued right basilar opacification and effusion. D/ / 10/26/2016 08:15:05 Kyaw Taylor MD / [facility] Interpreting Provider: Kyaw Taylor MD - ABG Interpretation ABG results: PT/INR, D-dimer PT 13.1 Seconds (9.4-12.1) H 10/23/16 13:36 D-Dimer 2229 ng/mLFEU (0-500) H 10/23/16 13:36 Consult Discharge Plan - Plan Additional Instructions: Use abdominal binder to keep patient from pulling PEG tube out. Referrals: Rasheed Suarez [Primary Care Provider] -
--- NOTE | 2016-10-27 11:34 | Internal Med Progress Note ---
Date of Encounter: 10/27/16 Time of Encounter: 09:25 - Assessment and plan (1) Atrial fibrillation Current Visit: Yes Status: Acute Assessment and plan: Rate control. Off Cardizem drip. Continue by mouth Cardizem at 180 mg daily and Toprol-XL 25 mg daily. Not on anticoagulation due to previous history of GI bleeds Qualifiers: Atrial fibrillation type: chronic Qualified Code(s): I48.2 - Chronic atrial fibrillation (2) Pneumonia Current Visit: Yes Status: Acute Assessment and plan: Complete 10 more days of doxycycline twice daily. Qualifiers: Pneumonia type: due to unspecified organism Laterality: right Lung location: lower lobe of lung Qualified Code(s): J18.9 - Pneumonia, unspecified organism (3) Dementia Current Visit: Yes Status: Chronic Assessment and plan: On Exelon Qualifiers: Dementia type: Alzheimer's disease Alzheimer's disease onset: unspecified onset Dementia behavioral disturbance: with behavioral disturbance Qualified Code(s): G30.8 - Other Alzheimer's disease; F02.81 - Dementia in other diseases classified elsewhere with behavioral disturbance (4) Dysphagia Current Visit: Yes Status: Chronic Assessment and plan: On pureed diet Qualifiers: Dysphagia type: unspecified Qualified Code(s): R13.10 - Dysphagia, unspecified (5) Chest pain Current Visit: Yes Status: Acute Assessment and plan: Resolved. Troponins chronically elevated. Qualifiers: Chest pain type: precordial chest pain Qualified Code(s): R07.2 - Precordial pain (6) Left upper extremity swelling Current Visit: Yes Status: Acute Assessment and plan: Improving. No DVT per venous Doppler (7) Hypokalemia Current Visit: No Status: Resolved - Subjective Interval history: Patient complains of chest pain. Has intermittent chronic chest pain and takes nitroglycerin at home for it. Denies any shortness of breath at this time. No palpitations. - Constitutional Vitals: Temp Pulse Resp BP Pulse Ox 98.1 F 94 16 111/67 100 10/27/16 07:34 10/27/16 07:34 10/27/16 07:46 10/27/16 07:34 10/27/16 07:46 General appearance: Present: cooperative, A&O X 3, pleasant, no acute distress, answers questions appropriately - Neck Neck exam general surgery: Present: supple, trachea midline. Absent: lymphadenopathy - Respiratory Respiratory exam: Present: CTAB. Absent: accessory muscle use, rales, rhonchi, wheezes - Cardiovascular Cardiovascular exam: Present: irregular rhythm, +S1, +S2. Absent: diastolic murmur, gallop, rubs, systolic murmur - GI/Abdominal GI/Abdominal exam: Present: normal bowel sounds, soft, no peritoneal signs. Absent: distended, tenderness - Extremities Exam Extremities exam: Present: warm, radial pulses palpable and symetrical. Absent : calf tenderness, cyanotic, pedal edema - Neurological Exam Neurological exam: Present: CN II-XII intact, oriented X3, no focal deficits. Absent: facial droop, speech deficit Internal Medicine: Result - Labs CBC & Chem 7: 10/23/16 13:36 10/27/16 06:42 Labs: BMP 10/26/16 10/27/16 19:40 06:42 Sodium 148 H 148 H Potassium 3.5 4.8 H D Chloride 103 104 Carbon Dioxide 37 H 35 H BUN 25 22 Creatinine 0.65 L 0.65 L Glucose 130 H 103 H Calcium 8.4 L 8.6 Cardiac Enzymes 10/26/16 Range/Units 16:15 Troponin I 0.23 H* (0-0.03) ng/mL - ABG Interpretation ABG results: PT/INR, D-dimer PT 13.1 Seconds (9.4-12.1) H 10/23/16 13:36 D-Dimer 2229 ng/mLFEU (0-500) H 10/23/16 13:36 - Impressions Impressions Chest X-Ray 10/26/16 07:00 IMPRESSION: Improved perihilar congestive changes. Continued right basilar opacification and effusion. D/ / 10/26/2016 08:15:05 Kyaw Taylor MD / earnold Interpreting Provider: Kyaw Taylor MD Consult Discharge Plan - Plan Additional Instructions: Use abdominal binder to keep patient from pulling PEG tube out. Referrals: Rasheed Suarez [Primary Care Provider] - - Attending Attestation This document has been at least partially created by [employer]App recognition technology by Dr. Alegria. Errors in grammar, wording or other phrases may exist. If errors are found after the documentation is signed, they will be addressed individually in the addendum section of this document when appropriate. Medical Decision Making - Differential Diagnosis Low risk for complications - Lab Data Lab results reviewed: Yes I reviewed the patient's lab results. Result diagrams: 10/23/16 13:36 10/27/16 06:42 Lab Results 10/26/16 10/26/16 10/26/16 Range/Units 00:21 03:45 05:14 Sodium 153 H (136-145) mEq/L Potassium 2.8 L D (3.5-4.5) mEq/L Chloride 103 (98-109) mEq/L Carbon Dioxide 39 H (19-29) mEq/L BUN 31 H D (8-26) mg/dL Creatinine 0.59 L (0.72-1.25) mg/dL Est GFR ( Amer) > 60 (> 60) Est GFR (Non-Af Amer) > 60 (> 60) BUN/Creatinine Ratio 53 H (6-26) Glucose 115 H (70-99) mg/dL POC Glucose 106 H 102 H (58-89) Calculated Osmolality 323 H (280-300) Calcium 8.8 (8.6-10.8) mg/dL Total Bilirubin 0.4 (0.2-1.2) mg/dL AST 23 (5-34) Units/L ALT < 6 (0-55) Units/L Alkaline Phosphatase 43 (38-126) Units/L Troponin I (0-0.03) ng/mL Serum Total Protein 5.5 L (6.0-8.3) g/dL Albumin 2.2 L (3.5-5.0) g/dL Globulin 3.3 (2.4-3.5) g/dL Albumin/Globulin Ratio 0.7 L (1.1-2.2) 10/26/16 10/26/16 10/26/16 Range/Units 09:40 11:46 16:14 Sodium (136-145) mEq/L Potassium (3.5-4.5) mEq/L Chloride (98-109) mEq/L Carbon Dioxide (19-29) mEq/L BUN (8-26) mg/dL Creatinine (0.72-1.25) mg/dL Est GFR ( Amer) (> 60) Est GFR (Non-Af Amer) (> 60) BUN/Creatinine Ratio (6-26) Glucose (70-99) mg/dL POC Glucose 170 H 106 H (58-89) Calculated Osmolality (280-300) Calcium (8.6-10.8) mg/dL Total Bilirubin (0.2-1.2) mg/dL AST (5-34) Units/L ALT (0-55) Units/L Alkaline Phosphatase (38-126) Units/L Troponin I 0.26 H* (0-0.03) ng/mL Serum Total Protein (6.0-8.3) g/dL Albumin (3.5-5.0) g/dL Globulin (2.4-3.5) g/dL Albumin/Globulin Ratio (1.1-2.2) 10/26/16 10/26/16 10/27/16 Range/Units 16:15 19:40 00:22 Sodium 148 H (136-145) mEq/L Potassium 3.5 (3.5-4.5) mEq/L Chloride 103 (98-109) mEq/L Carbon Dioxide 37 H (19-29) mEq/L BUN 25 (8-26) mg/dL Creatinine 0.65 L (0.72-1.25) mg/dL Est GFR ( Amer) > 60 (> 60) Est GFR (Non-Af Amer) > 60 (> 60) BUN/Creatinine Ratio 38 H (6-26) Glucose 130 H (70-99) mg/dL POC Glucose 117 H (58-89) Calculated Osmolality 312 H (280-300) Calcium 8.4 L (8.6-10.8) mg/dL Total Bilirubin (0.2-1.2) mg/dL AST (5-34) Units/L ALT (0-55) Units/L Alkaline Phosphatase (38-126) Units/L Troponin I 0.23 H* (0-0.03) ng/mL Serum Total Protein (6.0-8.3) g/dL Albumin (3.5-5.0) g/dL Globulin (2.4-3.5) g/dL Albumin/Globulin Ratio (1.1-2.2) 10/27/16 Range/Units 06:42 Sodium 148 H (136-145) mEq/L Potassium 4.8 H D (3.5-4.5) mEq/L Chloride 104 (98-109) mEq/L Carbon Dioxide 35 H (19-29) mEq/L BUN 22 (8-26) mg/dL Creatinine 0.65 L (0.72-1.25) mg/dL Est GFR ( Amer) > 60 (> 60) Est GFR (Non-Af Amer) > 60 (> 60) BUN/Creatinine Ratio 34 H (6-26) Glucose 103 H (70-99) mg/dL POC Glucose (58-89) Calculated Osmolality 310 H (280-300) Calcium 8.6 (8.6-10.8) mg/dL Total Bilirubin (0.2-1.2) mg/dL AST (5-34) Units/L ALT (0-55) Units/L Alkaline Phosphatase (38-126) Units/L Troponin I (0-0.03) ng/mL Serum Total Protein (6.0-8.3) g/dL Albumin (3.5-5.0) g/dL Globulin (2.4-3.5) g/dL Albumin/Globulin Ratio (1.1-2.2)
--- NOTE | 2016-10-27 12:23 | Discharge Summary ---
<CarbonMegan Jesus - Last Filed: 10/27/16 12:35> Date of Encounter: 10/27/16 Time of Encounter: 12:00 - Discharge Diagnosis (1) Dislodged gastrostomy tube Priority: Primary Status: Resolved (2) Dysphagia Priority: Secondary Status: Chronic Qualifiers: Dysphagia type: unspecified Qualified Code(s): R13.10 - Dysphagia, unspecified (3) Acute on chronic congestive heart failure Priority: Secondary Status: Chronic Qualifiers: Congestive heart failure type: combined Qualified Code(s): I50.43 - Acute on chronic combined systolic (congestive) and diastolic (congestive) heart failure (4) Altered mental status Priority: Secondary Status: Resolved Qualifiers: Altered mental status type: delirium Qualified Code(s): R41.0 - Disorientation, unspecified (5) Atrial fibrillation with RVR Priority: Secondary Status: Chronic (6) Goals of care, counseling/discussion Priority: Secondary Status: Acute (7) Physical deconditioning Priority: Secondary Status: Chronic - Discharge Medications Prescriptions: Diltiazem CD (24hr) [Cardizem CD] 180 mg PO DAILY #30 cap.er.24h Doxycycline 100 mg PO BID #20 capsule Metoprolol XL (24 HR) Succ [Toprol Xl] 25 mg PO DAILY #30 tab.er.24h Home Medications: Cyclosporine [Restasis] 1 drop BOTH EYES HS 08/22/15 [History] Darifenacin Hydrobromide [Enablex] 7.5 mg PO DAILY 08/22/15 [History] [place]-3 Acid Ethyl Esters [Lovaza] 1 gm PO Q12H 08/22/15 [History] Tamsulosin [Flomax] 0.4 mg PO DAILY 08/22/15 [History] Benzonatate [Tessalon] 100 mg PO TID PRN 07/21/16 [History] Ferrous Sulfate 325 mg PO DAILY 07/21/16 [History] Montelukast [Singulair] 10 mg PO DAILY 07/21/16 [History] Multivitamin [Multi-Day Vitamins] 1 tab PO DAILY 07/21/16 [History] Nitroglycerin [Nitrostat] 0.4 mg SL Q5M PRN 07/21/16 [History] Aspirin 81 mg PO DAILY #30 tab.chew 07/25/16 [Rx] Omeprazole [PriLOSEC] 40 mg PO BID #60 07/25/16 [Rx] Sucralfate [Carafate] 1 gm PO QIDAC #120 tablet 07/25/16 [Rx] Ascorbate Calcium [Vitamin C] 500 mg PO DAILY 08/18/16 [History] Ca/D3/Mag#11/Zinc/Overseer Kosher Kitchen/[place]/Bor [Caltrate 600+D Plus Tablet] 1 tab PO DAILY 08/18 [History] AcetaZOLAMIDE [Diamox] 250 mg PO DAILY #30 tablet 08/23/16 [Rx] Budesonide/Formoterol 80/4.5 [Symbicort 80/4.5] 2 puff IH BID 09/10/16 [History ] Furosemide [Lasix] 40 mg PO BID 09/10/16 [History] Selenium 300 mcg PO DAILY 09/10/16 [History] Docusate [Colace] 100 mg PO BID capsule 09/15/16 [Rx] Levothyroxine [Synthroid] 50 mcg PO 0630 tablet 09/15/16 [Rx] Fluticasone/Vilanterol [Breo Ellipta 100-25 Mcg INH] 1 each IH DAILY 09/19/16 [ History] Isosorbide DInitrate [Isosorbide Dinitrate] 30 mg PO DAILY 09/19/16 [History] Lactose-Reduced Food [Ensure Plus] 1 bottle PO 2000 09/19/16 [History] Potassium Chloride 20 meq PO TID 09/19/16 [History] Polyethylene Glycol 3350 [MiraLAX] 17 gm PO DAILY PRN #14 powd.pack 09/22/16 [Rx ] Sennosides/Docusate Sodium [Senna Plus] 2 each PO BID #60 tablet 09/22/16 [Rx] GuaiFENesin ER [Mucinex] 600 mg PO BID PRN #20 tbbp.12hr 10/09/16 [Rx] Ipratropium/Albuterol Neb [Duoneb] 3 ml IH [id number] PRN #10 inhsol 10/09/16 [Rx] Magnesium Oxide [Mag-Ox] 400 mg PO DAILY 10/10/16 [History] RisperiDONE [Risperidone Odt] 0.5 mg PO HS 10/10/16 [History] Saline Nasal [place] [[place] Nasal [place]] 1 - 2 spray NS Q4H PRN 10/10/16 [History] OxyCODONE Immed Rel [Roxicodone 5 MG] 5 mg PO Q6HR PRN #30 tablet MDD 4 tabs [Rx] Diltiazem CD (24hr) [Cardizem CD] 180 mg PO DAILY #30 cap.er.24h 10/27/16 [Rx] Doxycycline 100 mg PO BID #20 capsule 10/27/16 [Rx] Metoprolol XL (24 HR) Succ [Toprol Xl] 25 mg PO DAILY #30 tab.er.24h 10/27/16 [ Rx] Allergies/Adverse Reactions: Allergies Anesthetics - Laura Type- Parabens [Anesthetics - Laura Type] Allergy (Verified 10/10/16 07:55) Rash morphine Adverse Reaction (Verified 10/10/16 07:55) Itching General Surgery Exam Initial Vital Signs Temp Pulse Resp BP Pulse Ox 98.6 F 87 18 119/54 99 10/22/16 04:44 10/22/16 04:44 10/22/16 04:44 10/22/16 04:44 10/22/16 04:44 Date of admission: 10/25/16 17:41 Primary care physician: Rasheed Suarez Discharging clinician: Perfecto Jeronimo (Formerly [facility]) Anticipated date of discharge: 10/27/16 - Patient Status Disposition: Transfer Inpatient Rehab Fac Condition: Good Functional capacity at discharge: wheelchair bound Overall status at discharge: patient is progressing back to baseline - Discharge Instructions Instructions: Atrial Fibrillation (DC), Chest Pain (DC) Follow Up With: Rasheed Suarez [Primary Care Provider] - Forms: ED Satisfaction Letter, Work/School Release Additional Instructions: Coccyx- wash with soap and water and pat dry daily, apply Allevyn dressing every 24 hours and prn if soiled Turn every 2 hours PT/OT/Speech daily - Diet and Activity Activity: increase activity as tolerated, wear oxygen at all times (4L per nasal cannula continuous- may wean as tolerated for saturation greater than 90% Pur) Diet: other (Pureed diet) - Hospital Course Hospital course: Mr. Torres is a 89 year old male admitted to the hospital after pulling out him peg tube. Dr. Jeronimo admitted the patient and replaced his peg tube. The patient pulled his peg tube out within 24 hours of replacement despite having an abdominal binder in place. He was then put on a protocol for treatment of acute gastric perforation including bowel rest, NG tube to LIWS and IV antibiotics. The patient was acutely confused and was placed in soft wrist restraints to prevent disruption in treatment. He did have acute respiratory failure/hypoxia associated with pulmonary edema/pneumonia. He also had episodes of Atrial Fibrillation with RVR. The hospitalist service was consulted for medical management. He was treated with lasix, antibiotics and was also placed on a cardizem gtt. The patient did have a CT completed which showed no evidence of continued gastric perforation. His NG tube was discontinued and he was placed on a pureed diet. He is tolerating this without difficulty. He has been transitioned to oral medications and weaned from cardizem gtt. We will begin discharge planning and plan for outpatient f/u as needed with the surgery office. - Time Spent with Patient Total time spent providing and/or coordinating discharge services: Greater than 30 minutes Labs on day of discharge: Labs from last 24 hours 10/27/16 10/27/16 10/26/16 06:42 00:22 19:40 Sodium 148 H 148 H Potassium 4.8 H D 3.5 Chloride 104 103 Carbon Dioxide 35 H 37 H BUN 22 25 Creatinine 0.65 L 0.65 L Est GFR ( Amer) > 60 > 60 Est GFR (Non-Af Amer) > 60 > 60 BUN/Creatinine Ratio 34 H 38 H Glucose 103 H 130 H POC Glucose 117 H Calculated Osmolality 310 H 312 H Calcium 8.6 8.4 L Troponin I 10/26/16 10/26/16 16:15 16:14 Sodium Potassium Chloride Carbon Dioxide BUN Creatinine Est GFR ( Amer) Est GFR (Non-Af Amer) BUN/Creatinine Ratio Glucose POC Glucose 106 H Calculated Osmolality Calcium Troponin I 0.23 H* - Impressions ITS Impressions Chest X-Ray 10/26/16 07:00 IMPRESSION: Improved perihilar congestive changes. Continued right basilar opacification and effusion. D/ / 10/26/2016 08:15:05 Kyaw Taylor MD / aletha Interpreting Provider: Kyaw Taylor MD - Attending Attestation I examined this patient and my medical decision-making was reviewed with the BOAT PERSON/PA/Advanced Practice Nurse/Resident Physician. I agree with the documented findings, disposition and treatment plan as described except to the extent set forth below. <Perfecto Jeronimo - Last Filed: 10/29/16 08:03> General Surgery Exam Initial Vital Signs Temp Pulse Resp BP Pulse Ox 98.6 F 87 18 119/54 99 10/22/16 04:44 10/22/16 04:44 10/22/16 04:44 10/22/16 04:44 10/22/16 04:44 Date of admission: 10/25/16 17:41 Primary care physician: Rasheed Suarez - Hospital Course Hospital course: Mr. Torres is a 89 year old male - Time Spent with Patient Total time spent providing and/or coordinating discharge services: Labs on day of discharge: Labs from last 24 hours 10/28/16 11:49 POC Glucose 123 H - Impressions ITS Impressions Chest X-Ray 10/26/16 07:00 IMPRESSION: Improved perihilar congestive changes. Continued right basilar opacification and effusion. D/ / 10/26/2016 08:15:05 Kyaw Taylor MD / earnold Interpreting Provider: Kyaw Taylor MD - Attending Attestation Perfecto Jeronimo MD FACS
--- NOTE | 2016-10-27 12:48 | Physician Discharge Referral ---
<AnnamarieMegan Jesus - Last Filed: 10/27/16 12:45> ExtendedCare Referral Info Transfer To: [facility] Provider in Charge: Dr. Perfecto Jeronimo Provider in Charge after Transfer: PCP Institutional Level of Care: Skilled - Diagnosis (1) Dislodged gastrostomy tube Priority: Primary Status: Resolved (2) Dysphagia Priority: Secondary Status: Chronic (3) Acute on chronic congestive heart failure Priority: Secondary Status: Chronic (4) Altered mental status Priority: Secondary Status: Resolved (5) Atrial fibrillation with RVR Priority: Secondary Status: Resolved (6) Goals of care, counseling/discussion Priority: Secondary Status: Resolved (7) Physical deconditioning Priority: Secondary Status: Chronic Expected Duration of Placement: less than 30 days Prognosis: Fair Aware of Diagnosis: Patient, Family Aware of Prognosis: Patient, Family - Transfer Medications Prescriptions: Diltiazem CD (24hr) [Cardizem CD] 180 mg PO DAILY #30 cap.er.24h Doxycycline 100 mg PO BID #20 capsule Metoprolol XL (24 HR) Succ [Toprol Xl] 25 mg PO DAILY #30 tab.er.24h Home Medications: Cyclosporine [Restasis] 1 drop BOTH EYES HS 08/22/15 [History] Darifenacin Hydrobromide [Enablex] 7.5 mg PO DAILY 08/22/15 [History] [place]-3 Acid Ethyl Esters [Lovaza] 1 gm PO Q12H 08/22/15 [History] Tamsulosin [Flomax] 0.4 mg PO DAILY 08/22/15 [History] Benzonatate [Tessalon] 100 mg PO TID PRN 07/21/16 [History] Ferrous Sulfate 325 mg PO DAILY 07/21/16 [History] Montelukast [Singulair] 10 mg PO DAILY 07/21/16 [History] Multivitamin [Multi-Day Vitamins] 1 tab PO DAILY 07/21/16 [History] Nitroglycerin [Nitrostat] 0.4 mg SL Q5M PRN 07/21/16 [History] Aspirin 81 mg PO DAILY #30 tab.chew 07/25/16 [Rx] Omeprazole [PriLOSEC] 40 mg PO BID #60 07/25/16 [Rx] Sucralfate [Carafate] 1 gm PO QIDAC #120 tablet 07/25/16 [Rx] Ascorbate Calcium [Vitamin C] 500 mg PO DAILY 08/18/16 [History] Ca/D3/Mag#11/Zinc/Rice Dryer Mechanic/Everett/Bor [Caltrate 600+D Plus Tablet] 1 tab PO DAILY 08/18 [History] AcetaZOLAMIDE [Diamox] 250 mg PO DAILY #30 tablet 08/23/16 [Rx] Budesonide/Formoterol 80/4.5 [Symbicort 80/4.5] 2 puff IH BID 09/10/16 [History ] Furosemide [Lasix] 40 mg PO BID 09/10/16 [History] Selenium 300 mcg PO DAILY 09/10/16 [History] Docusate [Colace] 100 mg PO BID capsule 09/15/16 [Rx] Levothyroxine [Synthroid] 50 mcg PO 0630 tablet 09/15/16 [Rx] Fluticasone/Vilanterol [Breo Ellipta 100-25 Mcg INH] 1 each IH DAILY 09/19/16 [ History] Isosorbide DInitrate [Isosorbide Dinitrate] 30 mg PO DAILY 09/19/16 [History] Lactose-Reduced Food [Ensure Plus] 1 bottle PO 2000 09/19/16 [History] Potassium Chloride 20 meq PO TID 09/19/16 [History] Polyethylene Glycol 3350 [MiraLAX] 17 gm PO DAILY PRN #14 powd.pack 09/22/16 [Rx ] Sennosides/Docusate Sodium [Senna Plus] 2 each PO BID #60 tablet 09/22/16 [Rx] GuaiFENesin ER [Mucinex] 600 mg PO BID PRN #20 tbbp.12hr 10/09/16 [Rx] Ipratropium/Albuterol Neb [Duoneb] 3 ml IH [id number] PRN #10 inhsol 10/09/16 [Rx] Magnesium Oxide [Mag-Ox] 400 mg PO DAILY 10/10/16 [History] RisperiDONE [Risperidone Odt] 0.5 mg PO HS 10/10/16 [History] Saline Nasal [place] [[place] Nasal [place]] 1 - 2 spray NS Q4H PRN 10/10/16 [History] OxyCODONE Immed Rel [Roxicodone 5 MG] 5 mg PO Q6HR PRN #30 tablet MDD 4 tabs [Rx] Diltiazem CD (24hr) [Cardizem CD] 180 mg PO DAILY #30 cap.er.24h 10/27/16 [Rx] Doxycycline 100 mg PO BID #20 capsule 10/27/16 [Rx] Metoprolol XL (24 HR) Succ [Toprol Xl] 25 mg PO DAILY #30 tab.er.24h 10/27/16 [ Rx] Allergies/Adverse Reactions: Allergies Anesthetics - Laura Type- Parabens [Anesthetics - Laura Type] Allergy (Verified 10/10/16 07:55) Rash morphine Adverse Reaction (Verified 10/10/16 07:55) Itching - Respiratory Orders Oxygen / L per min (4L of oxygen per nasal cannula continuous. Wean for oxygen saturation greater than 90%) - Ancillary Orders May use pressure relief devices daily prn - Advance Directives Code Status: Full Code - Mobility Orders Chair, Ambulate - Rehabiliation Orders Rehab Potential: Fair Rehab Orders: ROM Exercises, Evaluation for Physical Therapy, Evaluation for Occupational Therapy, Evaluation for Speech Therapy - Treatments Skin tear care topically daily PRN per policy List/Other: Coccyx- cleanse with soap and water and pat dry daily, apply Allevyn dressing every 24 hours and prn if soiled - Diet Orders Pureed (Ensure TID) House Supplement per Dietary: Ensure TID with meals CERTIFICATION: I certify that the transfer of the above named patient to an Extended Care Facility is necessary for the continuing treatment of the diagnosis listed. The above information is true and accurate reflection of patient's current condition. Confidential - Redisclosure prohibited without a patient's written consent. <Perfecto Jeronimo - Last Filed: 10/29/16 08:03> - Respiratory Orders Smoking Cessation: Smoking cessation has been advised. For more information, call the [place] Tobacco Quit Line at 0-468-MGMP-NOW. CERTIFICATION: I certify that the transfer of the above named patient to an Extended Care Facility is necessary for the continuing treatment of the diagnosis listed. The above information is true and accurate reflection of patient's current condition. Confidential - Redisclosure prohibited without a patient's written consent.
--- NOTE | 2016-10-27 13:48 | Electrocardiograph Report ---
[facility] Test Date: 2016-10-26 Pat Name: ROSA MCCOY Department: 115 Room: 3A43 Gender: M Interventional Radiology Tech: SONIA : [id number] Requested By: Perfecto Jeronimo Order Number: [id number] Reading MD: Zac Douglas DO Measurements Intervals [place] Rate: 101 P: LA: 0 QRS: 15 QRSD: 106 T: 0 QT: 350 QTc: 408 Interpretive Statements Atrial fibrillation with rapid ventricular response Nonspecific ST-T changes Electronically Signed On 10-27-16 13:47:18 EST by Zac Douglas DO
[2016-10-28] MEDS: Doxycycline 100 MG in 0.9 % Sodium Chloride Mini Bag 100 ML IVPB SCH (05:21)
[2016-10-28] MEDS: Pantoprazole 40 MG VIAL IVP SCH (05:22)
[2016-10-28] MEDS: Budesonide/Formoterol 80/4.5 MDI IH SCH (08:05)
[2016-10-28] MEDS: Diltiazem CD (24hr) 180 MG CAPSULE PO SCH (09:04)
[2016-10-28] MEDS: Metoprolol XL (24 HR) Succ 25 MG TAB.ER.24H PO SCH (09:05)
[2016-10-28] MEDS: Rivastigmine Patch 4.6 MG PATCH.TD24 TD SCH (09:05)
--- NOTE | 2016-10-28 09:38 | Venous Imaging Report ---
UE Venous Duplex Patient Name:Chay Torres Order Number:[id number] Procedure Date:10/27/2016 Date:1925ge:89 yrs Gender:Male Location:[facility] Room #: 3A43 Clinical Services Specialist:Qi Maurer Referring MD:Brittni Alegria MD patient registration clerk:Rasheed Suarez MD Reading MD:Jeovany Farrell MD Secondary Indications: Risk Factors Yes/No Hx of DVT Yes Anticoagulants No Hx of Chemotherapy No Impressions: Normal left upper extremity deep and superficial venous exam. Normal contralateral subclavian vein. Findings Venous Duplex Results: Right: Venous imaging of the upper extremity reveals full patency and normal vessel compressibility of the right subclavian. Doppler signals in the evaluated veins were normal. Left: Venous imaging of the upper extremity reveals full patency and normal vessel compressibility of the left jugular, left subclavian, left axillary, left brachial, left cephalic, left basilic, left radial and left ulnar. Doppler signals in the evaluated veins were normal. Upper Extremity Venous Duplex Side Vein Compress Spontaneous Flow Augment Left Jugular Normal Yes Phasic Yes Left Subclavian Normal Yes Phasic Yes Left Axillary Normal Yes Phasic Yes Left Brachial Normal Yes Phasic Yes Left Cephalic Normal Yes Phasic Yes Left Basilic Normal Yes Phasic Yes Left Radial Normal Yes Phasic Yes Left Ulnar Normal Yes Phasic Yes Right Subclavian Normal Yes Phasic Yes Updated by Jeovany Farrell MD on 10/28/2016 9:32:43 AM electronically signed on 10/28/2016 9:33:17 AM with status of Final
--- NOTE | 2016-10-28 10:48 | Event Note ---
<HusseinbatshevakimberlyMichelle potts - Last Filed: 10/28/16 10:45> Date of Encounter: 10/28/16 Time of Encounter: 10:46 Patient seen and examined at bedside this morning. He did not leave the hospital yesterday due to his bed at [facility] no longer being available. Social work is working to have him placed in rehab at [facility], hopefully today. <Perfecto Jeronimo - Last Filed: 10/29/16 08:06> I examined this patient and my medical decision-making was reviewed with the PAPER MAKER/PA/Advanced Practice Nurse/Resident Physician. I agree with the documented findings, disposition and treatment plan as described except to the extent set forth below. Perfecto Jeronimo MD FACS
[2016-10-28 11:51] VITALS: BP 123/82
--- NOTE | 2016-10-28 14:47 | Electrocardiograph Report ---
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
--- NOTE | 2016-10-28 14:57 | Event Note ---
Date of Encounter: 10/28/16 Time of Encounter: 09:00 Patient is supposed to discharge yesterday but delayed because of bed issue. Saw and examined the patient today, he is doing well, still in A. fib, heart rate 88-108. We will continue current medications. Internal medicine will sign off, call if there is further consult needed.
== END 2016-10-28 16:16 | DRG 391 ==
LOC: EMEROO 04:37 → 3BNU 04:37 → 3ANU 06:12 → SUATTDRO 10-25 17:41
PROVIDERS: ADMIT Emergency Medicine; ATTEND Internal Medicine